=== PATIENT | male | born 1940 | race Caucasian/White ===

== ENCOUNTER 2023-05-30 12:52 | Outpatient (CLI) | payer MEDICARE, BC, SELFPAY | END 2023-05-30 12:53 | disposition home or self-care (01) | PROVIDERS: PCP Nurse Practitioner Gerontology; Visit Provider Nurse Practitioner Family | DX: E11.621 Type 2 diabetes mellitus with foot ulcer (principal); L97.514 Non-pressure chronic ulcer of other part of right foot with necrosis of bone; Z79.4 Long term (current) use of insulin; Z79.84 Long term (current) use of oral hypoglycemic drugs | CPT/HCPCS: 11044; 73630; 87070; 87186; 88304; 88311; G0463 ==

== ENCOUNTER 2023-06-05 08:52 | Outpatient (CLI) | payer MEDICARE, SELFPAY | END 2023-06-05 08:53 | disposition home or self-care (01) | PROVIDERS: PCP Nurse Practitioner Gerontology; Visit Provider Nurse Practitioner Family | DX: E11.621 Type 2 diabetes mellitus with foot ulcer (principal); L97.514 Non-pressure chronic ulcer of other part of right foot with necrosis of bone; M86.171 Other acute osteomyelitis, right ankle and foot; Z79.4 Long term (current) use of insulin; Z79.84 Long term (current) use of oral hypoglycemic drugs | CPT/HCPCS: 11043; G0463 ==

== ENCOUNTER 2023-08-01 09:20 | Outpatient (REF) | payer MEDICARE, SELFPAY ==
[2023-08-01 10:39] LABS: Chloride* 95 mmol/L (96-114)
[2023-08-01 10:40] LABS: Potassium* 4.3 mmol/L (3.6-5.1); Sodium* 132 mmol/L (135-149)
[2023-08-01 10:42] LABS: Creatinine* 0.6 mg/dL (0.5-1.5); Estimated Glomerular Filt Rate 95 ml/min
[2023-08-01 10:43] LABS: Anion Gap 9 mEq/L (7-15); Blood Urea Nitrogen* 19 mg/dL (7-30); Calcium* 9.5 mg/dL (8.4-10.6); Carbon Dioxide* 28 mmol/L (20-32); Glucose* 90 mg/dL (60-115)
[2023-08-01 12:04] LABS: Hemoglobin A1C* 7.9 % (0-5.6)
== END 2023-08-01 09:21 | disposition home or self-care (01) ==
LOC: NPINS 09:20
PROVIDERS: PCP Nurse Practitioner Gerontology; Visit Provider Nurse Practitioner Gerontology
DX: E11.9 Type 2 diabetes mellitus without complications (principal)
CPT/HCPCS: 80048; 83036

== ENCOUNTER 2023-12-05 11:16 | Outpatient (REF) | payer MEDICARE, SELFPAY ==
[2023-12-05 12:47] LABS: Basophils Absolute Auto 0.02 K/uL (0.00-0.30); Basophils Percent Auto 0.4 % (0.0-3.0); Eosinophils Absolute Auto 0.15 K/uL (0.00-0.50); Hematocrit 35.5 % (37.0-53.0); Hemoglobin* 12.2 gm/dL (13.5-17.5); Immature Granulocytes Abs Auto 0.02 K/uL (0.00-0.30); Immature Granulocytes Pct Auto 0.4 %; Lymphocytes Absolute Auto 1.28 K/uL (0.90-2.90); Mean Corpuscular HGB Conc 34 gm/dL (32-36); Mean Corpuscular Hemoglobin 34 pg (26-34); Mean Corpuscular Volume 98 fL (80-100); Monocytes Percent Auto 11.8 % (0.0-11.0); Neutrophils Absolute Auto 2.88 K/uL (1.7-7.0); Neutrophils Percent Auto 58.4 % (42.0-72.0); Platelet Count* 257 K/uL (140-440); RDW Coefficient of Variation % 13.1 % (11.5-15.5); Red Blood Count 3.64 m/uL (4.30-5.90); White Blood Count* 4.93 K/uL (4.50-11.00)
[2023-12-05 12:53] LABS: Slide Review Reflex No
[2023-12-05 13:16] LABS: Hemoglobin A1C* 7.6 % (0-5.6)
== END 2023-12-05 11:17 | disposition home or self-care (01) ==
LOC: NPINS 11:16
PROVIDERS: PCP Nurse Practitioner Gerontology; Visit Provider Family Medicine
DX: E11.42 Type 2 diabetes mellitus with diabetic polyneuropathy (principal); I67.9 Cerebrovascular disease, unspecified
CPT/HCPCS: 83036; 85025

== ENCOUNTER 2023-12-22 13:14 | Emergency (ER) | payer MEDICARE, BC, SELFPAY ==
--- NOTE | 2023-12-22 13:24 | CRLHL7_ITS ---
For Patients: As a result of the Century Cures Act, medical imaging exams and procedure reports are released immediately into your electronic medical record. You may view this report before your referring provider. If you have questions, please contact your health care provider. INDICATION: Fall, head injury, on Plavix TECHNIQUE: Noncontrast axial CT of the head. Coronal and sagittal reformats. Bone and soft tissue algorithms. COMPARISON: None FINDINGS: Soft tissue edema/hematoma at the right frontal scalp and periorbital face. The calvarium appears grossly intact. No acute intracranial hemorrhage or abnormal extra-axial fluid collection. 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 Preserved meza-white matter differentiation. Scattered hypoattenuation throughout the supratentorial white matter, with mild central predominant cerebral volume loss. Calcific intracranial atherosclerotic plaquing. Clear visualized paranasal sinuses and mastoid air cells. Bilateral lens implants. IMPRESSION: 1. Soft tissue edema/hematoma at the right frontal scalp and periorbital face. 2. No skull fracture or acute intracranial hemorrhage identified. 3. Mild generalized cerebral volume loss, mild chronic microangiopathy changes, and old left occipital lobe infarct. Please note that all CT scans at this facility use dose modulation, iterative reconstruction, and/or weight-based dosing when appropriate to reduce radiation dose to as low as reasonably achievable. Dictated by Sue Kyle MD @ 12/22/2023 2:25:33 PM (Electronically Signed)
[2023-12-22 13:25] VITALS: BP 142/72; PULSE 80; RESP 16; TEMP 36.8; O2SAT 96; BMI 24.7
--- NOTE | 2023-12-22 13:32 | ED.WOUNDLAC ---
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 Inocente states he simply was walking through the bedroom and caught his big toe on the interface between the carpet and linoleum. He tried to compensate but fell striking his face on the carpet causing a large black eye laceration to his right elbow. He was not knocked out, experienced any nausea or vomiting. He denies any prodromal symptoms. To include nausea lightheadedness dizziness chest pain or shortness of breath. Since that time he continues to denied chest pain or shortness of breath. He is currently on Plavix as an anti-platelet agent. He denies any neck pain, abdominal pain, back pain. His daughter and his were present and her very loving and supportive. Inocente typically walks with a cane but they did use his wheelchair this evening in order to transfer him over from [facility]. Related Data Home Medications ?Medication ?Instructions ?Recorded ?Confirmed amlodipine 10 mg tablet 10 mg PO DAILY 12/22/23 12/22/23 clopidogrel 75 mg tablet 75 mg PO DAILY 12/22/23 12/22/23 insulin glargine 100 unit/mL (3 38 unit subcut QPM 12/22/23 12/22/23 mL) subcutaneous pen (Lantus Solostar U-100 Insulin) losartan 100 mg tablet 100 mg PO DAILY 12/22/23 12/22/23 losartan 50 mg tablet 50 mg PO DAILY 12/22/23 12/22/23 meclizine 12.5 mg tablet 6.25 mg PO 3XD PRN 12/22/23 12/22/23 metformin 500 mg tablet,extended 1,000 mg PO QAM 12/22/23 12/22/23 release 24 hr Allergies Allergy/AdvReac Type Severity Reaction Status Date / Time mold Allergy Intermediate Hives Verified 12/22/23 13:33 Sulfa (Sulfonamide Allergy Intermediate Rash Verified 12/22/23 13:33 Antibiotics) [id number] Reductase AdvReac Intermediate myalgias Verified 12/22/23 13:33 Inhibitor [Jqfaogd-XQP-CkV Reductase Inhibitors] Review of Systems Status of ROS: Reports: 10 or more systems reviewed and unremarkable except as noted in History and below [facility] Social History Smoking Status: Never smoker Do you use any of these nicotine containing products: None How often do you have a drink containing alcohol: never How often do you have six or more drinks on one occasion: Never AUDIT-C Alcohol total score: 0 Non-prescribed substance use: denies use Exam Narrative: Exam Narrative: Inocente is alert and oriented. Very pleasant gentleman in no acute distress. He has a large amount of ecchymosis and edema around the right eye with a 3 cm laceration through the bulk of the right eyebrow. This compromises epidermis dermis partially compromises subcutaneous tissue. His EOM continues to be full. No obvious step-offs. He is able to smile without difficulty. Neck is supple. No midline tenderness. Range of motion full. Heart with regular rate and rhythm and lungs are clear bilaterally. Abdomen soft nontender. No will pain with palpation on the back. Lower extremities show a superficial abrasion on the left knee but he is able to move his extremities without difficulty. Palpation along clavicles bilaterally without pain. Upper humerus without pain. Skin tear noted on the right lateral elbow. It is slowly oozing. Nursing staff have placed Tegaderm but this is only allowing blood to accumulate. Have changed this to a compression bandage. On patient's right hand he has a v-shaped flap laceration. Lateral to that is a superficial laceration compromising epidermis. Const: Vital Signs, click to edit/add: Vital Signs - 24 hr 12/22/23 13:25 12/22/23 16:05 Temperature 98.2 F Pulse Rate [Pulse Oximeter] 80 75 Respiratory Rate 16 18 Blood Pressure [Ri ght Upper Arm] 142/72 H 134/76 Pulse Oximetry 96 95 Oxygen Delivery Me thod Room Air Room Air Documenting provider has reviewed patient's vital signs: yes Course Course ED Course: At this time differential diagnosis includes but is not limited to cervical fracture, closed head injury, concussion, skull fracture, facial fracture. Head CT has been ordered by nursing staff. I have asked the dad cervical spine. Will place let on the eyebrow laceration for future repair. Unfortunately I do think that the large v-shaped flap on the head dorsum of the hand will heal better with sutures. This area is cleansed. 1% lidocaine with epinephrine is injected into the periphery of the wound with good anesthesia achieved. Reevaluation(s) Reevaluation #1: Head CT and cervical spine negative. Unfortunately did not catch the bulk of the orbits. I did check with Radiology to see if we needed at a facial CT and indeed we do. Reevaluation #2: Laceration repair: Dorsum of right hand shows a v-shaped flap laceration measuring approximately 10 cm. Flap had been rolled up this was removed and gently placed back into position. This area had been cleansed. No foreign bodies were noted. Wound with persistent oozing. Nine sutures of 5 0 Ethilon were placed in interrupted fashion with good wound approximation. Skin at the tip of the flap is extremely thin and I have doubts that this will be viable. This was laid down with good wound approximation. Reevaluation #3: Laceration repair 2.: Right eyebrow Patient noted to have a 3 cm laceration through his right eyebrow. This compromises epidermis and dermis and partially compromises subcutaneous tissue. No foreign bodies are noted. Seven sutures of 6 0 Ethilon are placed in an interrupted fashion with good wound closure. I did leave the ends of the sutures quite long so that they would be easy to remove. Vital Signs Vital signs: Initial Vital Signs Temperature 98.2 F 12/22/23 13:25 Temperature Source Temporal Artery Scan 12/22/23 13:25 Pulse Rate 80 12/22/23 13:25 Respiratory Rate 16 12/22/23 13:25 Blood Pressure 142/72 H 12/22/23 13:25 Blood Pressure Mean 95 12/22/23 13:25 Blood Pressure Position Semi-Fowlers 12/22/23 13:25 Pulse Oximetry 96 12/22/23 13:25 Oxygen Delivery Method Room Air 12/22/23 13:25 Vital Signs Temperature 98.2 F 12/22/23 13:25 Pulse Rate 80 12/22/23 13:25 Respiratory Rate 16 12/22/23 13:25 Blood Pressure 142/72 H 12/22/23 13:25 Pulse Oximetry 96 12/22/23 13:25 Oxygen Delivery Method Room Air 12/22/23 13:25 Temperature 98.2 F 12/22/23 13:25 Pulse Rate 75 12/22/23 16:05 Respiratory Rate 18 12/22/23 16:05 Blood Pressure 134/76 12/22/23 16:05 Pulse Oximetry 95 12/22/23 16:05 Oxygen Delivery Method Room Air 12/22/23 16:05 Medications Administered Medications: Discontinued Medications Generic Name Dose Route Start Last Admin Trade Name Freq PRN Reason Stop Dose Admin Tetanus/Diphtheria Toxoids 0.5 ml 12/22/23 14:13 12/22/23 14:27 Tetanus-Diphtheria Tox Vaccine IM 12/22/23 14:14 0.5 ml .ONCE ONE Administration Lidocaine/Epinephrine/Tetracaine 3 ml 12/22/23 14:05 12/22/23 14:15 Lidocaine/Epinep/Tetracaine 3 Ml Gel..Ml. TOPICAL 12/22/23 14:06 3 ml ONCE ONE Administration MDM - Wound/Laceration MDM Narrative Medical decision making narrative: 1. Fall-no prodromal symptoms. This was simply a trip. 2. Right orbital trauma with laceration-sutures were placed. Fortunately no evidence of orbital fracture on CT. Head and cervical spine CT is also negative. Sutures will be removed in 5 days time. Monitor for infection. 3. Thyroid nodule - measuring 1.6 cm and will need to have follow-up. 4. Skin tear right elbow-pressure dressing applied with approximation of the skin. 5. Right hand lacerations-1 flap needed to be stone and patient tolerated procedure well. The wound came together quite well. Sutures will be removed in 10 days time. Monitor for infection. 6. Disposition-home at this time. Return for worsening symptoms, confusion, vomiting and as needed. Medical Records Attestation: I reviewed the patient's medical records. Imaging Data CT scan - head: Attestation: I have reviewed the pertinent imaging results. Radiologist's impression: Soft tissue edema/hematoma at the right frontal scalp and periorbital face. The calvarium appears grossly intact. No acute intracranial hemorrhage or abnormal extra-axial fluid collection. 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 Preserved meza-white matter differentiation. Scattered hypoattenuation throughout the supratentorial white matter, with mild central predominant cerebral volume loss. Calcific intracranial atherosclerotic plaquing. Clear visualized paranasal sinuses and mastoid air cells. Bilateral lens implants. IMPRESSION: 1. Soft tissue edema/hematoma at the right frontal scalp and periorbital face. 2. No skull fracture or acute intracranial hemorrhage identified. 3. Mild generalized cerebral volume loss, mild chronic microangiopathy changes, and old left occipital lobe infarct. Cervical spine CT: Attestation: I have reviewed the pertinent imaging results. Radiologist's impression: he normal cervical lordosis is preserved. Grade 1 anterolisthesis at C3-4 and C7-T1. Craniocervical junction appears within normal limits. Mild chronic anterior wedge configuration of C3, C4, and T1. No acute fracture identified. Bony ankylosis across the bilateral uncovertebral and facet joints at C3-4. Scattered posterior disc-osteophyte complexes, uncovertebral and facet arthropathy. Moderately severe spinal canal stenosis at C5-6, with mild spinal canal narrowing elsewhere. Multilevel neural foraminal stenosis, greatest bilaterally at C4-5 and C5-6, followed by C6-7 and C3-4. Calcific plaquing at the carotid bifurcations. Approximately 1.6 cm hypodense left thyroid nodule, incompletely visualized included lung apices are clear, without evidence of pneumothorax. Impression: 1. No evidence of acute fracture or traumatic malalignment in the cervical spine. 2. Cervical spondylosis, with moderately severe spinal canal stenosis and multilevel high-grade neural foraminal stenosis as detailed. 3. Approximately 1.6 cm left thyroid nodule. Consider thyroid ultrasound for further characterization if clinically appropriate. Facial CT: Attestation: I have reviewed the pertinent imaging results. Radiologist's impression: No acute fracture of the maxillofacial bones. A large right preseptal/periorbital hematoma. The orbital contents are normal in appearance. There is no evidence for penetrating injury to the ocular globes. The lenses are situated in their normally expected anterior locations. No radiodense or metallic foreign body is demonstrated. Calcified secretions left maxillary alveolar recess. Paranasal sinuses and mastoid air cells are otherwise clear. The nasal septum is relatively midline. Advanced upper cervical spondylosis. Thick vascular calcifications carotid bulbs. The visualized portions of the brain are normal in appearance. IMPRESSION: 1. No acute fracture of the maxillofacial bones. Discharge Plan Discharge Clinical Impression: Laceration, Fall, Skin tear Patient Disposition: Home, Self-Care Condition: Improved Additional Instructions: 1. Eyebrow laceration-7 sutures were placed. These will need to be removed in 5-7 days time. Monitor for infection and seek medical attention for fever, purulent drainage and as needed . A thin layer of bacitracin applied twice daily is acceptable. Leave open to air as long as you are not in an environment which is contaminated or dirty. 2. Right hand laceration-9 sutures were placed. Suture removal in 10 days time. You have another super fascial laceration near this. I would recommend keeping bacitracin on this area twice daily. Again, cover if needed. 3. Right elbow abrasion-change dressing on Monday morning. Monitor for infection 4. Return to the emergency room as needed. Note that on your cervical spine CT there is a thyroid nodule. It is measuring 1.6 cm. Nodules are very common but we should follow up on it. Please have your regular physician order an ultrasound of the thyroid. Prescriptions: No Action losartan 50 mg tablet 50 mg PO DAILY meclizine 12.5 mg tablet 6.25 mg PO 3XD PRN clopidogrel 75 mg tablet 75 mg PO DAILY amlodipine 10 mg tablet 10 mg PO DAILY losartan 100 mg tablet 100 mg PO DAILY metformin 500 mg tablet extended release 24 hr 1,000 mg PO QAM insulin glargine [Lantus Solostar U-100 Insulin] 100 unit/mL (3 mL) insulin pen 38 unit subcut QPM Follow Up/Referrals: Aure Marquez DNP, RN [Primary Care Provider] - Stand Alone Forms: [employer] Info Instructions
--- NOTE | 2023-12-22 13:38 | CRLHL7_ITS ---
For Patients: As a result of the Century Cures Act, medical imaging exams and procedure reports are released immediately into your electronic medical record. You may view this report before your referring provider. If you have questions, please contact your health care provider. Indication: Fall, head injury, on Plavix Technique: Noncontrast axial CT of the cervical spine with coronal and sagittal reformats. Comparison: Same-day CT head Findings: The normal cervical lordosis is preserved. Grade 1 anterolisthesis at C3-4 and C7-T1. Craniocervical junction appears within normal limits. Mild chronic anterior wedge configuration of C3, C4, and T1. No acute fracture identified. Bony ankylosis across the bilateral uncovertebral and facet joints at C3-4. Scattered posterior disc-osteophyte complexes, uncovertebral and facet arthropathy. Moderately severe spinal canal stenosis at C5-6, with mild spinal canal narrowing elsewhere. Multilevel neural foraminal stenosis, greatest bilaterally at C4-5 and C5-6, followed by C6-7 and C3-4. Calcific plaquing at the carotid bifurcations. Approximately 1.6 cm hypodense left thyroid nodule, incompletely visualized included lung apices are clear, without evidence of pneumothorax. Impression: 1. No evidence of acute fracture or traumatic malalignment in the cervical spine. 2. Cervical spondylosis, with moderately severe spinal canal stenosis and multilevel high-grade neural foraminal stenosis as detailed. 3. Approximately 1.6 cm left thyroid nodule. Consider thyroid ultrasound for further characterization if clinically appropriate. Please note that all CT scans at this facility use dose modulation, iterative reconstruction, and/or weight-based dosing when appropriate to reduce radiation dose to as low as reasonably achievable. Dictated by Sue Kyle MD @ 12/22/2023 2:31:55 PM (Electronically Signed)
[2023-12-22] MEDS: LIDOCAINE/EPINEP/TETRACAINE 3 ML GEL..ML. TOPICAL (14:15)
--- NOTE | 2023-12-22 15:06 | CRLHL7_ITS ---
For Patients: As a result of the Century Cures Act, medical imaging exams and procedure reports are released immediately into your electronic medical record. You may view this report before your referring provider. If you have questions, please contact your health care provider. INDICATION: Right periorbital trauma. TECHNIQUE: CT of the face without contrast. Coronal reconstructions are included. COMPARISON: Head CT from 12/22/2023. FINDINGS: No acute fracture of the maxillofacial bones. A large right preseptal/periorbital hematoma. The orbital contents are normal in appearance. There is no evidence for penetrating injury to the ocular globes. The lenses are situated in their normally expected anterior locations. No radiodense or metallic foreign body is demonstrated. Calcified secretions left maxillary alveolar recess. Paranasal sinuses and mastoid air cells are otherwise clear. The nasal septum is relatively midline. Advanced upper cervical spondylosis. Thick vascular calcifications carotid bulbs. The visualized portions of the brain are normal in appearance. IMPRESSION: 1. No acute fracture of the maxillofacial bones. Please note that all CT scans at this facility use dose modulation, iterative reconstruction, and/or weight-based dosing when appropriate to reduce radiation dose to as low as reasonably achievable. Dictated by Lamine Go MD @ 12/22/2023 4:27:02 PM (Electronically Signed)
[2023-12-22 16:05] VITALS: BP 134/76; PULSE 75; RESP 18; O2SAT 95
--- NOTE | 2023-12-22 17:02 | ED.NURSE ---
Bacitracin applied to right eyebrow. Right elbow wrapped with Coban, Telfa applied. Right hand bacitracin applied, Telfa placed on top, and wrapped lightly with Coban. Pt tolerated well.
== END 2023-12-22 17:20 | disposition home or self-care (01) ==
PROVIDERS: Emergency Provider Family Medicine; PCP Nurse Practitioner Gerontology
DX: S61.411A Laceration without foreign body of right hand, initial encounter (principal); S01.111A Laceration without foreign body of right eyelid and periocular area, initial encounter; S50.311A Abrasion of right elbow, initial encounter; W01.0XXA Fall on same level from slipping, tripping and stumbling without subsequent striking against object, initial encounter; Y93.01 Activity, walking, marching and hiking; Y92.003 Bedroom of unspecified non-institutional (private) residence as the place of occurrence of the external cause; Z23 Encounter for immunization
CPT/HCPCS: 12011; 12001; 70450; 70486; 72125; 90471; 90714; 99284; 99285

== ENCOUNTER 2024-01-10 10:42 | Outpatient (CLI) | payer MEDICARE, BC, SELFPAY ==
--- NOTE | 2024-01-10 11:15 | CRLHL7_ITS ---
For Patients: As a result of the Century Cures Act, medical imaging exams and procedure reports are released immediately into your electronic medical record. You may view this report before your referring provider. If you have questions, please contact your health care provider. INDICATION: Thyroid nodule COMPARISON: CT 12/22/2023 TECHNIQUE: Booker scale and color Doppler images were acquired of the thyroid gland. FINDINGS: Mostly solid nodule left thyroid lobe inferior pole measures 1.7 x 1.1 x 1.3 cm, TR 4. Isthmus measures 3.8 millimeters. The right lobe measures 5.7 x 1.7 x 2.1 cm and the left lobe measures 5.5 x 1.8 x 2.4 cm in size. The color Doppler images demonstrate normal vascularity. There is no evidence of cervical lymphadenopathy or parathyroid mass. IMPRESSION: 1.7 cm TR 4 nodule left thyroid lobe. FNA recommended. Dictated by Laith Brown MD @ 01/12/2024 6:28:10 AM (Electronically Signed)
== END 2024-01-10 10:43 | disposition home or self-care (01) ==
LOC: US 10:43
PROVIDERS: PCP Nurse Practitioner Gerontology; Visit Provider Nurse Practitioner Gerontology
DX: E04.1 Nontoxic single thyroid nodule (principal)
CPT/HCPCS: 76536

== ENCOUNTER 2024-01-12 08:49 | Outpatient (CLI) | payer MEDICARE, BC, SELFPAY | END 2024-01-12 08:50 | disposition home or self-care (01) | LOC: RAD 08:50 | PROVIDERS: PCP Nurse Practitioner Gerontology; Visit Provider Family Medicine | DX: R01.1 Cardiac murmur, unspecified (principal); I35.1 Nonrheumatic aortic (valve) insufficiency; I34.0 Nonrheumatic mitral (valve) insufficiency | CPT/HCPCS: 93306 ==

== ENCOUNTER 2024-02-05 08:58 | Outpatient (CLI) | payer MEDICARE, BC, SELFPAY ==
--- NOTE | 2024-02-05 09:15 | CRLHL7_ITS ---
For Patients: As a result of the Century Cures Act, medical imaging exams and procedure reports are released immediately into your electronic medical record. You may view this report before your referring provider. If you have questions, please contact your health care provider. INDICATION : Left thyroid nodule. TECHNIQUE : Ultrasound-guided fine needle aspiration of thyroid nodule. Comparison : 01/10/2024 FINDINGS : PROCEDURE: After the informed consent and time-out, multiple fine needle aspirations were obtained from the thyroid nodule. Fine needle performed. 25 gauge needles were used. Lidocaine was used for local anesthesia. The preliminary cytology was adequate for interpretation. Real-time imaging was used for guidance and needle placement. Post imaging ultrasound demonstrates no immediate complication. IMPRESSION : Successful fine needle aspiration of left thyroid nodule. Dictated by Laith Brown MD @ 02/05/2024 10:21:06 AM (Electronically Signed)
== END 2024-02-05 08:59 | disposition home or self-care (01) ==
LOC: US 08:59
PROVIDERS: PCP Nurse Practitioner Gerontology; Visit Provider Nurse Practitioner Gerontology
DX: E04.1 Nontoxic single thyroid nodule (principal)
CPT/HCPCS: 10005; 88173

== ENCOUNTER 2024-04-16 16:15 | Outpatient (REF) | payer MEDICARE, BC, SELFPAY ==
[2024-04-16 16:58] LABS: Chloride* 95 mmol/L (96-114); Potassium* 4.5 mmol/L (3.6-5.1); Sodium* 128 mmol/L (135-149)
[2024-04-16 17:01] LABS: Anion Gap 9 mEq/L (7-15); Blood Urea Nitrogen* 14 mg/dL (7-30); Calcium* 9.2 mg/dL (8.4-10.6); Carbon Dioxide* 24 mmol/L (20-32); Creatinine* 0.6 mg/dL (0.5-1.5); Estimated Glomerular Filt Rate 95 ml/min; Glucose* 190 mg/dL (60-115)
[2024-04-16 17:08] LABS: Hemoglobin A1C* 8.2 % (0-5.6)
== END 2024-04-16 16:16 | disposition home or self-care (01) ==
LOC: NPINS 16:15
PROVIDERS: PCP Nurse Practitioner Gerontology; Visit Provider Nurse Practitioner Gerontology
DX: E11.9 Type 2 diabetes mellitus without complications (principal)
CPT/HCPCS: 80048; 83036

== ENCOUNTER 2024-06-04 08:55 | Outpatient (REF) | payer MEDICARE, BC, SELFPAY ==
[2024-06-04 10:07] LABS: PSA Screen* 1.87 ng/mL (0.10-4.00)
== END 2024-06-04 08:56 | disposition home or self-care (01) ==
LOC: NPINS 08:55
PROVIDERS: PCP Nurse Practitioner Gerontology; Visit Provider Nurse Practitioner Gerontology
DX: Z12.5 Encounter for screening for malignant neoplasm of prostate (principal)
CPT/HCPCS: 84153; G0103

== ENCOUNTER 2024-07-10 09:16 | Outpatient (REF) | payer MEDICARE, BC, SELFPAY ==
[2024-07-10 09:49] LABS: Hemoglobin A1C* 8.3 % (0-5.6)
[2024-07-10 09:51] LABS: Chloride* 93 mmol/L (96-114)
[2024-07-10 09:52] LABS: Potassium* 4.4 mmol/L (3.6-5.1); Sodium* 132 mmol/L (135-149)
[2024-07-10 09:54] LABS: Creatinine* 0.7 mg/dL (0.5-1.5); Estimated Glomerular Filt Rate 90 ml/min
[2024-07-10 09:55] LABS: Anion Gap 10 mEq/L (7-15); Blood Urea Nitrogen* 17 mg/dL (7-30); Calcium* 9.1 mg/dL (8.4-10.6); Carbon Dioxide* 29 mmol/L (20-32); Glucose* 312 mg/dL (60-115)
== END 2024-07-10 09:17 | disposition home or self-care (01) ==
LOC: LAB 09:16
PROVIDERS: PCP Nurse Practitioner Gerontology; Visit Provider Nurse Practitioner Gerontology
DX: E11.9 Type 2 diabetes mellitus without complications (principal)
CPT/HCPCS: 36415; 80048; 83036

== ENCOUNTER 2024-07-16 09:00 | Outpatient (REF) | payer MEDICARE, BC, SELFPAY ==
[2024-07-16 09:23] LABS: Chloride* 95 mmol/L (96-114); Sodium* 132 mmol/L (135-149)
[2024-07-16 09:24] LABS: Potassium* 4.6 mmol/L (3.6-5.1)
[2024-07-16 09:26] LABS: Blood Urea Nitrogen* 17 mg/dL (7-30); Creatinine* 0.8 mg/dL (0.5-1.5); Estimated Glomerular Filt Rate 87 ml/min
[2024-07-16 09:27] LABS: Anion Gap 9 mEq/L (7-15); Calcium* 9.3 mg/dL (8.4-10.6); Carbon Dioxide* 28 mmol/L (20-32); Glucose* 196 mg/dL (60-115)
[2024-07-16 09:34] LABS: Hemoglobin A1C* 8.3 % (0-5.6)
== END 2024-07-16 09:01 | disposition home or self-care (01) ==
LOC: NPINS 09:00
PROVIDERS: PCP Nurse Practitioner Gerontology; Visit Provider Nurse Practitioner Gerontology
DX: E11.9 Type 2 diabetes mellitus without complications (principal)
CPT/HCPCS: 80048; 83036

== ENCOUNTER 2024-09-25 09:30 | Outpatient (REF) | payer MEDICARE, BC, SELFPAY ==
[2024-09-25 10:15] LABS: Hemoglobin* 13.2 gm/dL (13.5-17.5)
[2024-09-25 10:16] LABS: Chloride* 96 mmol/L (96-114); Potassium* 4.5 mmol/L (3.6-5.1); Sodium* 132 mmol/L (135-149)
[2024-09-25 10:19] LABS: Anion Gap 7 mEq/L (7-15); Blood Urea Nitrogen* 15 mg/dL (7-30); Carbon Dioxide* 29 mmol/L (20-32); Creatinine* 0.7 mg/dL (0.5-1.5); Estimated Glomerular Filt Rate 90 ml/min
[2024-09-25 10:20] LABS: Calcium* 9.4 mg/dL (8.4-10.6); Glucose* 218 mg/dL (60-115)
[2024-09-25 10:27] LABS: Hemoglobin A1C* 8.4 % (0-5.6)
== END 2024-09-25 09:31 | disposition home or self-care (01) ==
LOC: NPINS 09:30
PROVIDERS: PCP Nurse Practitioner Gerontology; Visit Provider Family Medicine
DX: E11.9 Type 2 diabetes mellitus without complications (principal); R60.9 Edema, unspecified
CPT/HCPCS: 80048; 83036; 85018

== ENCOUNTER 2025-02-11 13:11 | Outpatient (REF) | payer MEDICARE, BC, SELFPAY ==
--- OUTSIDE RECORDS SUMMARY | 2021-03-15 16:54 | XMS_ITS | Continuity of Care Document ---
Author Organization [facility] Address [address] [address] Phone Care Team Providers Care Flame Hardening Machine Setter Name Role Phone Naveen Zimmerman MD Unavailable Unavailable Allergies, Adverse Reactions, Alerts Substance Reaction Status Criticality Sulfa (Sulfonamide Antibiotics) Active No Information mold Active No Information Medications Medication Instructions Dosage Effective Dates (start - stop) Status Comments dicloxacillin 500 mg capsule take 1 capsule by oral route every 6 hours 1 hour before a meal or 2 hours after a meal 500 MG - Active Basaglar KwikPen U-100 Insulin 100 unit/mL (3 mL) subcutaneous inject by subcutaneous route as per insulin protocol 0.00 - Active glucosamine HCl 500 mg tablet - Active diclofenac 1 % topical gel apply 2 gram by topical route 4 times every day to the affected area(s) 2.00 gram - Active Vitamin B-12 1,000 mcg tablet take 1 tablet by oral route every day 1 tablet - Active tolterodine 1 mg tablet take 1 tablet by oral route 2 times every day 1 MG - Active Co Q-10 200 mg capsule - Active clopidogrel 75 mg tablet take 1 tablet by oral route every day 75 MG - Active amlodipine 10 mg tablet take 1 tablet by oral route every day 10 MG - Active chromium picolinate 400 mcg tablet - Active doxycycline hyclate 150 mg tablet take 1 tablet by oral route 2 times every day 150 MG - Active Advance Directives Directive Yes / No Effective Date File Name No Information Encounters Encounter Description Practice Location Reason(s) For Visit Diagnoses Date Provider Providers Copied on Encounter [facility], [address] [place], [place], [id number], [place] tel:[phone] [facility] No Information 1 Erasmo Hodge. [address], [place], [place], [id number] , [place]. tel: [phone] [facility], [address] , [place], [place], [id number], [place] tel:[phone] [facility] No Information 0 Erasmo Hodge. [address], [place], [place], [id number] , [place]. tel: [phone] Family History Family Member Type Diagnosis Age At Onset Problem Family history of heart dise ase Problem Family history of Diabetes m ellitus Problem Family history of Bladder ne oplasm Payers Payer name Insurance type Covered democrat ID Authoriza tion(s) No Information Social History Type Description Quantity Date Captured Comments Sex Male Smoking Status No Information Chief Complaint And Reason For Visit No Information Reason For Referral Reason For Referral No Information History Of Present Illness Encounter Date Complaint History Of Prese nt Illness No Information Functional Status Date Functional Assessmen t No Information Instructions Date Instruction Additional Infor mation No Information Assessments Type Assessment Date No Information Patient Care Teams Name Effective Dates (start - stop) Status Members No Information
[2025-02-11 14:00] LABS: Chloride* 95 mmol/L (96-114); Potassium* 4.5 mmol/L (3.6-5.1)
[2025-02-11 14:01] LABS: Sodium* 129 mmol/L (135-149)
[2025-02-11 14:03] LABS: Anion Gap 10 mEq/L (7-15); Blood Urea Nitrogen* 12 mg/dL (7-30); Calcium* 9.0 mg/dL (8.4-10.6); Carbon Dioxide* 24 mmol/L (20-32); Creatinine* 0.6 mg/dL (0.5-1.5); Estimated Glomerular Filt Rate 94 ml/min; Glucose* 219 mg/dL (60-115)
[2025-02-11 14:13] LABS: Hematocrit* 37.0 % (37.0-53.0); Hemoglobin* 12.9 gm/dL (13.5-17.5); Immature Granulocytes Abs Auto 0.02 K/uL (0.00-0.30); Immature Granulocytes Pct Auto 0.4 %; Lymphocytes Absolute Auto 1.46 K/uL (0.90-2.90); Mean Corpuscular HGB Conc 35 gm/dL (32-36); Mean Corpuscular Hemoglobin 33 pg (26-34); Mean Corpuscular Volume 96 fL (80-100); RDW Coefficient of Variation % 13.2 % (11.5-15.5); Red Blood Count* 3.87 m/uL (4.30-5.90); White Blood Count* 5.10 K/uL (4.50-11.00)
[2025-02-11 14:31] LABS: Slide Review Reflex No; Vitamin D 25 Hydroxy* 40 ng/mL (30-80)
[2025-02-11 14:52] LABS: Vitamin B12* 430 pg/mL (243-894)
== END 2025-02-11 13:12 | disposition home or self-care (01) ==
LOC: NPINS 13:11
PROVIDERS: PCP Nurse Practitioner Gerontology; Visit Provider Family Medicine
DX: E11.9 Type 2 diabetes mellitus without complications (principal); R60.0 Localized edema; Z79.899 Other long term (current) drug therapy
CPT/HCPCS: 80048; 82306; 82607; 83036; 85025

== ENCOUNTER 2025-03-10 20:22 | Emergency (ER) | payer MEDICARE, BC, SELFPAY ==
--- OUTSIDE RECORDS SUMMARY | 2021-03-15 16:54 | XMS_ITS | Continuity of Care Document ---
Author Organization [facility] Address [address] [address] Phone Care Team Providers Care Test Rack Operator Name Role Phone Naveen Zimmerman MD Unavailable [...] on Encounter [facility], [address] [place], [place], [id number], [place] tel:[phone] [facility] No Information 1 Erasmo Hodge. [address], [place], [place], [id number] , [place]. tel: [phone] [facility], [address] , [place], [place], [id number], [place] tel:[phone] [facility] No Information 0 Erasmo Hodge. [address], [place], [place], [id number] , [place]. tel: [phone] Family History Family Member Type Diagnosis Age [...]
--- OUTSIDE RECORDS SUMMARY | 2021-03-15 16:54 | XMS_ITS | Continuity of Care Document ---
Author Organization [facility] Address [address], [place] [address] Phone Care Team Providers Care Tunneling Machine Operator Name Role Phone Naveen Zimmerman MD [...] Encounter [facility], [address] [place], [place], [id number], [place] tel:[phone] [facility] No Information 1 Ersamo Hodge. [address], [place], [place], [id number] , [place]. tel: [phone] [facility], [address] , [place], [place], [id number], [place] tel:[phone] [facility] No Information 0 Erasmo Hodge. [address], [place], [place], [id number] , [place]. tel: [phone] Family History Family Member Type Diagnosis Age At Onset Problem Family history of heart dise ase Problem Family history of Diabetes m ellitus Problem Family history of Bladder ne oplasm Payers Payer name Insurance type Covered libertarian ID Authoriza tion(s) No Information Social History [...]
--- OUTSIDE RECORDS SUMMARY | 2025-03-10 20:24 | XMS_ITS | Clinical Summary ---
Author Organization [facility] Address [address] [place] [id number] Care Team Providers Care Manufacturing Process Technician Name Role Phone No Machado MD Primary Care Provider + Allergies Active Allergy Reactions Criticality Noted Date Comments Latex Other - Describe In Comment Field 06/06/2023 States wounds don't heal with latex bandages Sulfa (Sulfonamide Antibiotics) Hives 06/06/2023 Medications aspirin 81 mg cap Take 2 Capsules by mouth once daily. 4 Active losartan (COZAAR) 100 mg tablet Take 100 mg by mouth once daily. Active amLODIPine (NORVASC) 10 mg tablet Take 10 mg by mouth once daily. Active metFORMIN (GLUCOPHAGE XR) 500 mg Extended-Releas e tablet Take 1,000 mg by mouth once daily with evening meal. Active clopidogreL (PLAVIX) 75 mg tablet Take 75 mg by mouth every morning. 3 Active Lantus Solostar U-100 Insulin 100 unit/mL (3 mL) pen Inject 38 units subcutaneous before bedtime. Active levoFLOXacin (LEVAQUIN) 500 mg tablet Take 500 mg by mouth once daily. 4 Active durable medical equipment (DME)Indication s:Osteomyelitis of second toe of right foot (HC) SQUARED TOE POST OP LEIFE, GILES, REF: [phone] 4 Active Social History Tobacco Use Types Packs/Day Years Used Date Smoking Tobacco: Former Cigarettes Pipe Smokeless Tobacco: Never Tobacco Cessation:Counseling Given: Yes Alcohol Use Standard Drinks/Week Comments Not Currently 0 (1 standard drink = 0.6 oz pur e alcohol) Sex and Gender Information Value Date Recorded Sex Assigned at Not on file Legal Sex Male 10:45 AM [employer] Gender Identity Not on file Sexual Orientation Not on file Obstetrics History Last Filed Vital Signs Vital Sign Reading Time Taken Comments Blood Pressure 142/73 10/31/2023 3:50 PM CDT Pulse 82 10/31/2023 3:50 PM CDT Temperature 36.8 C (98.2 F) 06/15/2023 10:23 AM [employer] Respiratory Rate 16 06/08/2023 12:10 PM [employer] Oxygen Saturation 96% 10/31/2023 3:50 PM CDT Inhaled Oxygen Concentration - - Weight 83 kg (182 lb 14.4 oz) 06/08/2023 11:00 A M [employer] Height 180.3 cm (5' 11) 06/08/2023 11:00 AM [employer] Body Mass Index 25.51 06/08/2023 11:00 AM [employer] WORK[employer] Plan of Treatment Health Maintenance Due Date Last Done Comments Tetanus booster 1949 Depression screening for age 12+ 1950 BMI (ht and wt on same day) for age 18+ 1956 Pneumococcal series for age 50+ (1 of 1 - PCV) 1988 Zoster (shingles) series for age 50+ (1 of 2) 1988 Medicare Wellness for age 65+ 08/10/2003 RSV vaccine for adults or (1 - 1-dose 75+ series) 2013 COVID-19 vaccine series ( - season) 2025 Influenza Vaccine (#1) 2025 Hepatitis B series for 19+ Aged Out N o longer eligible based on patient's age to complete this topic Insurance MEDICARE PART B HB ONLY [facility] MEDICARE PB ONLY MEDICARE PART A HB ONLY Advance Directives * Full Code (Latest Code Status on File) Date Activated Date Inactivated Comments 06/08/2023 10:56 AM 06/08/2023 3:27 PM Question Answer Comments Code Status Discussion: Unable to Assess Preferences, Provider to review later Care Teams Manufacturing Process Technician Relationship Specialty Start Date End Date No Machado MD [id number] [id number] PCP - General Family Practice 05/23/23
[2025-03-10 20:41] VITALS: BP 160/109; PULSE 92; RESP 16; TEMP 35.8; O2SAT 96; BMI 26.5
--- NOTE | 2025-03-10 20:44 | ED.ARRPALP ---
HPI - Arrhythmia/Palpitations General Time Seen by Provider: 20:24 Date Seen: 03/10/25 Chief Complaint: Arrhythmia/Palpitations Stated Complaint: Irregular heart beat Time Seen by Provider: 03/10/25 20:24 Source: patient, family (daughter is here with patient) and RN notes reviewed Mode of arrival: ambulatory Limitations: no limitations History of Present Illness HPI narrative: This 84-year-old male is brought over from [facility] where he resides by his daughter for an irregular pulse. He checks his vitals daily, follows his blood pressure and pulse, the monitor has been saying his pulse is irregular. Has been going on at least 2 weeks, maybe upwards of 4. He notes no shortness of breath, no chest pain. His EKG on arrival here is showing atrial fibrillation. This patient does take aspirin and Plavix. He was seen for a stroke in [place], had visual loss on the right side of the right eye and partial left visual loss as well, sounds as if it was from the posterior system. He is on an 81 mg aspirin as well as Plavix. I do not know all the details or when this actually happened. He is also insulin-dependent type 2 diabetic. He has hypertension. His blood pressure is recorded starting on February 28 show 116/72, pulse is 72. The 114/81 with a pulse of 68. The 115/90 pulse of 73. The 124/72, pulse of 72. The 122/91, pulse 68. The 126/77, pulse 83. The 131/74, pulse 74. The 115/79, pulse of 71. He is on losartan and amlodipine for his hypertension. We have recent chemistries and labs from this patient, reviewed. Most recent on February 11. complaint: irregular heart beat Related Data Home Medications ?Medication ?Instructions ?Recorded ?Confirmed amlodipine 10 mg tablet 10 mg PO DAILY 12/22/23 12/22/23 clopidogrel 75 mg tablet 75 mg PO DAILY 12/22/23 12/22/23 insulin glargine 100 unit/mL (3 38 unit subcut QPM 12/22/23 12/22/23 mL) subcutaneous pen (Lantus Solostar U-100 Insulin) losartan 100 mg tablet 100 mg PO DAILY 12/22/23 12/22/23 losartan 50 mg tablet 50 mg PO DAILY 12/22/23 12/22/23 meclizine 12.5 mg tablet 6.25 mg PO 3XD PRN 12/22/23 12/22/23 metformin 500 mg tablet,extended 1,000 mg PO QAM 12/22/23 12/22/23 release 24 hr Previous Rx's ?Medication ?Instructions ?Recorded apixaban 5 mg tablet (Eliquis) 5 mg PO BID #60 tabs 03/10/25 Allergies Allergy/AdvReac Type Severity Reaction Status Date / Time mold Allergy Intermediate Hives Verified 12/22/23 13:33 Sulfa (Sulfonamide Allergy Intermediate Rash Verified 12/22/23 13:33 Antibiotics) Mdzictm-LSR-[id number] Reductase AdvReac Intermediate myalgias Verified 12/22/23 13:33 Inhibitor (Vmbzosk-IWF-SkX Reductase Inhibitors) Review of Systems Status of ROS: Reports: 6 or more systems reviewed and unremarkable except as noted in History and below PFSH PFSH Medical History Atrial fibrillation ?I48.91 - Unspecified atrial fibrillation (ICD-10) Chronic anticoagulation ?Z79.01 - MCC (current) use of anticoagulants (ICD-10) CVA (cerebral vascular accident) ?I63.9 - Cerebral infarction, unspecified (ICD-10) Insulin dependent diabetes mellitus Health care directive on file ?Z78.9 - Other specified health status (ICD-10) Social History Smoking Status: Never smoker Do you use any of these nicotine containing products: None How often do you have a drink containing alcohol: never How often do you have six or more drinks on one occasion: Never AUDIT-C Alcohol total score: 0 Non-prescribed substance use: denies use Exam Const: Vital Signs, click to edit/add: Vital Signs - 24 hr 03/10/25 20:41 Temperature 96.5 F L Pulse Rate [Right Pulse Oximeter] 92 Respiratory Rate 16 Blood Pressure [Ri ght Upper Arm] 160/109 H Pulse Oximetry 96 Oxygen Delivery Me thod Room Air This 84-year-old male is alert, interactive, no apparent distress, seen exam room 3. He is lying in the bed, very pleasant. Speech is normal. Symmetrical facial function. Lungs are clear come good air entry, no wheezing or crackles, no tachypnea, no accessory muscle use. CV irregularly irregular, systolic murmur heard best right sternal border, normal S1-S2. Abdomen is soft, nontender, nondistended. He has absolutely no pretibial edema, there is no swelling of his legs, skin appears to be without any rash, warm and dry. Documenting provider has reviewed patient's vital signs: yes Course Course ED Course: Have reviewed with patient and his daughter that is EKG showing atrial fibrillation. He is currently rate controlled, will continue to monitor him on cardiac monitoring. His outside vitals show lower blood pressures and heart rate within control. Did discuss the stroke risk with this arrhythmia. 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 I do not know the details or what year this happened. I would not place him on both antiplatelets as well as an anticoagulant, this needs further investigation either with Cardiology or Neurology or potentially both. I will briefly run this by Cardiology alpesh, feel that this patient can follow-up outpatient. He had recent stable labs, he has no evidence of any fluid overload, no symptoms to suggest this. I think he can likely discharge to home and be managed outpatient. Reevaluation(s) Time of Reevaluation #1: 21:10 Reevaluation #1: Did review with patient and his daughter the recommendations per the artificial breast fabricator. Questions were answered. He does ambulate with a walker, does not go without it. We discussed the importance of continuing using his walker to prevent falls and complications blood thinners. He does definitely seem to understand. Consultations Consultation #1: Have spoken with artificial breast fabricator Dr. Williamson. She agrees with my plan for Zio patch. Should also recommend getting this patient has an updated echo. She would either stop the Plavix or the aspirin and start Eliquis. She stated 1 could consider conceivably stopping both Plavix and aspirin and putting him on Eliquis instead. I will talk to patient, did review with her that he is also diabetic. We ultimately decided on the Eliquis and 81 mg aspirin. He will need relatively recent cardiology follow-up but should not be scheduled and tell his Zio patch has been completed. It will not make any point to see Cardiology until both the Zio patch an echo reports are back. Time: 21:00 Vital Signs Vital signs: Initial Vital Signs Temperature 96.5 F L 03/10/25 20:41 Temperature Source Temporal Artery Scan 03/10/25 20:41 Pulse Rate 92 03/10/25 20:41 Pulse Rhythm Irregular 03/10/25 20:41 Respiratory Rate 16 03/10/25 20:41 Blood Pressure 160/109 H 03/10/25 20:41 Blood Pressure Mean 126 H 03/10/25 20:41 Blood Pressure Position Semi-Fowlers 03/10/25 20:41 Pulse Oximetry 96 03/10/25 20:41 Oxygen Delivery Method Room Air 03/10/25 20:41 Vital Signs Temperature 96.5 F L 03/10/25 20:41 Pulse Rate 92 03/10/25 20:41 Respiratory Rate 16 03/10/25 20:41 Blood Pressure 160/109 H 03/10/25 20:41 Pulse Oximetry 96 03/10/25 20:41 Oxygen Delivery Method Room Air 03/10/25 20:41 Temperature 96.5 F L 03/10/25 20:41 Pulse Rate 92 03/10/25 20:41 Respiratory Rate 16 03/10/25 20:41 Blood Pressure 160/109 H 03/10/25 20:41 Pulse Oximetry 96 03/10/25 20:41 Oxygen Delivery Method Room Air 03/10/25 20:41 MDM - Arrhythmia/Palpitations Medical Records Attestation: I reviewed the patient's medical records. Medical records narrative: Echo from 01/12/2024 showed normal left ventricular size, mildly increased wall thickness, normal global systolic function, calculated EF 62%. Right ventricular cavity size is normal, global systolic RV function is normal. Normal left atrium size. The aortic valve is calcified, mild stenosis and mild regurgitation. The aortic valve peak velocity is 2.5 m/sec, the peak gradient is 25 mmHg and the mean gradient is 12 mmHg. The aortic valve area is 1.71 cm squared with a dimension lists index of 0.47. The stroke volume index is 45 milliliters/meter squared. The mitral valve is sclerotic, [id number] mitral regurgitation. Tricuspid valve is normal. 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 No pericardial effusion. Cardiac rhythm was documented to be regular and with premature ventricular contractions during this study. ECG Data Attestation: I personally reviewed and interpreted this ECG as follows: (Atrial fibrillation, 92 beats per minute.) ECG interpretation date: 03/10/25 ECG interpretation time: 20:57 Discharge Plan Discharge Clinical Impression: Atrial fibrillation Qualifiers: Atrial fibrillation type: unspecified Qualified Code(s): I48.91 - Unspecified atrial fibrillation Patient Disposition: Home, Self-Care Condition: Stable Instructions: A-fib (Atrial Fibrillation) (ED), Blood Thinners (ED) Additional Instructions: We will start Eliquis 5 mg twice a day, did get a dose here tonight in the ER, need to try to get a dose as soon as you are able to in the morning, should attempt to take 12 hours apart. Stay on the 81 mg aspirin for now, can discuss further with your primary care provider and/or Cardiology if this should be something you stay on long-term. He definitely will need the Eliquis to prevent strokes from atrial fibrillation as long as you are deemed safe to stay on this medication. We will have you stop the Plavix (clopidogrel). You will need to complete the Zio patch, bring back per instructions. It is also recommended that you get scheduled for an echo due to the new atrial fibrillation, you have not had 1 since 2023. You will also need to see Cardiology in follow-up, this appointment [facility] through [facility]. The echo and Zio patch results should be back when you see Cardiology, appointment should probably be scheduled in 4-6 weeks depending on the time frame of the echo being done. If they are finding your heart rate is elevating over 100 consistently, could consider adding in metoprolol as a rate control agent. Please provide this discharge summary to your primary care provider, do need to see them within the next week if possible. Activity Level: Activity as Tolerated Prescriptions: New Eliquis 5 mg tablet 5 mg PO BID Qty: 60 0RF No Action losartan 50 mg tablet 50 mg PO DAILY meclizine 12.5 mg tablet 6.25 mg PO 3XD PRN clopidogrel 75 mg tablet 75 mg PO DAILY amlodipine 10 mg tablet 10 mg PO DAILY losartan 100 mg tablet 100 mg PO DAILY metformin 500 mg tablet extended release 24 hr 1,000 mg PO QAM insulin glargine [Lantus Solostar U-100 Insulin] 100 unit/mL (3 mL) insulin pen 38 unit subcut QPM Follow Up/Referrals: Aure Marquez DNP, RN [Primary Care Provider, Family Practice] Stand Alone Forms: [employer] Info Instructions
[2025-03-10 21:04] VITALS: RESP 21
[2025-03-10 21:15] VITALS: RESP 22
[2025-03-10 21:30] VITALS: RESP 20
[2025-03-10 21:35] VITALS: BP 118/88; PULSE 75; RESP 19; O2SAT 96
[2025-03-10] MEDS: APIXABAN 5 MG TABLET PO (21:56)
== END 2025-03-10 22:04 | disposition home or self-care (01) ==
PROVIDERS: Emergency Provider Family Medicine; PCP Nurse Practitioner Gerontology
DX: I48.91 Unspecified atrial fibrillation (principal)
CPT/HCPCS: 93005; 93246; 99284; A9270

== ENCOUNTER 2025-03-18 10:59 | Outpatient (REF) | payer MEDICARE, BC, SELFPAY ==
--- OUTSIDE RECORDS SUMMARY | 2021-03-15 16:54 | XMS_ITS | Continuity of Care Document ---
Author Organization [facility] Address [address] [place] [address] Phone Care Team Providers Care Drill Instructor Name Role Phone Erasmo GARZA, Naveen Unavailable [...] Encounter Disposition [facility], [address], [place], [id number], [place] tel:[phone] [facility] No Information 1 Erasmo Hodge. [address] , [place], [place], [id number] , [place]. tel:[phone] [facility], [address] , [place], [place], [id number], [place] tel:[phone] [facility] No Information 0 Erasmo Hodge. [address] , [place], [place], [id number] , [place]. tel:[phone] Family History Family Member Type Diagnosis Age [...]
[2025-03-18 11:30] LABS: Hematocrit* 36.1 % (37.0-53.0); Hemoglobin* 12.3 gm/dL (13.5-17.5); Immature Granulocytes Abs Auto 0.01 K/uL (0.00-0.30); Immature Granulocytes Pct Auto 0.2 %; Lymphocytes Absolute Auto 1.18 K/uL (0.90-2.90); Mean Corpuscular HGB Conc 34 gm/dL (32-36); Mean Corpuscular Hemoglobin 33 pg (26-34); Mean Corpuscular Volume 97 fL (80-100); RDW Coefficient of Variation % 13.7 % (11.5-15.5); Red Blood Count* 3.72 m/uL (4.30-5.90); White Blood Count* 5.30 K/uL (4.50-11.00)
[2025-03-18 11:37] LABS: Slide Review Reflex No
[2025-03-18 11:43] LABS: Chloride* 98 mmol/L (96-114); Potassium* 4.8 mmol/L (3.6-5.1); Sodium* 130 mmol/L (135-149)
[2025-03-18 11:46] LABS: Anion Gap 8 mEq/L (7-15); Blood Urea Nitrogen* 19 mg/dL (7-30); Calcium* 9.2 mg/dL (8.4-10.6); Carbon Dioxide* 24 mmol/L (20-32); Creatinine* 0.8 mg/dL (0.5-1.5); Estimated Glomerular Filt Rate 86 ml/min; Glucose* 205 mg/dL (60-115)
[2025-03-18 12:06] LABS: Free T4 Free Thyroxine* 1.28 ng/dL (0.70-1.85)
--- OUTSIDE RECORDS SUMMARY | 2025-03-19 00:19 | XMS_ITS | Continuity of Care Document ---
Author Organization [facility] Address [address] [place] [address] Care Team Providers Care Digital Media Designer Name Role Phone RHONDA VAUGHAN Primary Care Provider Assessment No assessment recorded. Plan of Treatment Reminders Order Date Submit Date Provider Last Modified By Organization Details Last Modified Time Details Appointments None recorded. Lab urinalysis , dipstick 2024 [facility], [address], [address], [place], [address], 16:38:50 Referral None recorded. Procedures bladder scan (PROC) 2024 [facility], [facility] [facility], [address], [place], [address], 16:38:50 Surgeries None recorded. Imaging None recorded. Medication Orders alfuzosin ER 10 mg tablet,ext ended release [address] [id number], [address], [address], 16:44:22 Patient TargetsNo targets recorded. Patient Instructions Encounter Date Encounter Id Patient Instructions Last Modified By Organization Details Last Modified Time 02/25/2025 [id number] doing better chastity martino alfuzosin. will continue on this, rx converted to 90 days. rtc 6 months for UA/PVR recheck [email or web address] Not available 02/25/2025 16:42:39 Reason for Referral None Reported. Results Created Date Observation Date Name Description Value Unit Range Abnormal Flag Note LastModifiedBy Organization Detail LastModifiedTime 02/26/20 25 02/25/2025 urina lysis , dipst ick Color-Status Yellow Not Available [address], [place], [address], 02/10/2025 14:27:42 02/26/20 25 02/25/2025 urina lysis , dipst ick Clarity-Stat us Clear Not Available [address], [place], [address], 02/10/2025 14:27:42 02/26/20 25 02/25/2025 urina lysis , dipst ick Glucose-Stat us 500 Not Available [address], [place], [address], 02/10/2025 14:27:42 02/26/20 25 02/25/2025 urina lysis , dipst ick Sp Marshall-Stat us 1.020 Not Available [address], [place], [address], 02/10/2025 14:27:42 02/26/20 25 02/25/2025 urina lysis , dipst ick pH-Status 5.5 Not Available [address], [place], [address], 02/10/2025 14:27:42 02/26/20 25 02/25/2025 urina lysis , dipst ick Nitrates-Sta tus negati ve Not Available [address], [place], [address], 02/10/2025 14:27:42 02/26/2002/25/2025 urina lysis , dipst ick Blood-Status Trace Not Available [address] [place], [place], [address], 02/10/2025 14:27:42 02/26/2002/25/2025 urina lysis , dipst ick Leuko-Status Negati ve Not Available [address] [place], [place], [address], 02/10/2025 14:27:42 02/26/20 25 02/25/2025 urina lysis , dipst ick Specimen Type Voided Not Available [address] [place], [place], [address], 02/10/2025 14:27:42 02/26/2002/25/2025 bladd er scan (PROC ) Volume (in mL) 149 Not Available [address] [place], [place], [address], 02/10/2025 14:27:41 Result Notes None recorded. Problems Name Problem SNOMED Code Status Onset Date Resolution Date Notes Provider Name and Address Organization Details Recorded Time Incomplete emptying of urinary bladder 032412723 Active 2024 Kyle Heredia MD [address] [place] [address], [address], [facility] 10:52:48 Overflow incontinence of urine 614763670 Active 2024 Kyle Heredia MD [address] [place] [address],[address] [place] [address], [address], [facility] 10:57:12 Problem Notes None recorded. Procedures Surgical History Date Name Laterality Status Provider Name and Address Organization Details Recorded Time 02/26/20 25 Bladder Scan completed Kyle Heredia MD [address] [place] [address],[address], [place], [address], [facility] 02/25/2025 16:36:38 01/15/20 25 Bladder Scan completed Kyle Heredia MD [address] [place] [address],[address], [place], [address], [facility] 01/14/2025 10:44:13 06/18/19 25 Bladder Scan completed Kyle Heredia MD [address] [place] [address],[address], [place], [address], [facility] 06/18/2024 11:19:02 05/23/19 24 Bladder Scan completed Kyle Heredia MD [address] [place] [address],[address], [place], [address], [facility] 05/23/2023 11:25:15 tonsillectomy completed Kyle Heredia MD [address] [place] [address],[address], [place], [address], [facility] 05/23/2023 11:23:48 Appendectomy completed Kyle Heredia MD [address] [place] [address],[address], [place], [address], [facility] 05/23/2023 11:23:53 procedure on pancreas completed Kyle Heredia MD [address] [place] [address],[address], [address], [facility] 05/23/2023 11:24:28 Hip arthroscopy dx completed Kyle Heredia MD [address] [place] [address],[address], [place], [address], [facility] 05/23/2023 11:24:38 total knee replacement completed Kyle Heredia MD [address] [place] [address],[address], [address], [facility] 05/23/2023 11:24:45 Imaging Results None recorded. Procedure Notes None recorded. Medical Equipment None Reported. Allergies Allergen ID Allergen Name Allergen Category Reaction Reaction Severity Criticality Documentation Date Start Date Code Code System Note Provider Name and Address Organization Details Recorded Time 042436 Substance with sulfonami de structure and antibacte rial mechanism of action (substanc e) medicatio n hives Not available Not available 05/23/20232023 13973 8003 SNOMED Kyle Heredia MD [address] [place] [address],[address] [place] [address], [address], [facility] 5 11:18:33 [id number] latex environme nt,medica tion other Not available Not available 06/18/20242023 22666 91 RxNorm State s woun ds don't heal with latex paige ges Kyle Heredia MD [address] [place] [address],[address], [place], [address], [facility] 5 11:18:30 416183 mold extract environme nt Not available Not available Not available 01/14/20252019 66918 8 RxNorm Kyle Heredia MD [address] [place] [address],[address] [place] [address], [address], [facility] 5 10:43:47 Medications Name Sig Start Date Stop Date Status Note LastModified by Organization Details LastModified Time losartan 50 mg tablet TAKE ONE TABLET BY MOUTH ONE TIME DAILY* active Not Available Not Available No t Available miconazole nitrate 2 % topical cream APPLY ONCE DAILY DIRECTED FOR AT LEAST 3 WEEKS.* active Not Available Not Available No t Available ofloxacin 0.3 % eye drops PLACE 3 DROPS into THE LEFT ear THREE TIMES DAILY FOR 3 DAYS 05/23 completed Not Available Not Available Not Available meclizine 12.5 mg tablet TAKE ONE-HALF TABLET BY MOUTH THREE TIMES DAILY NEEDED* active Not Available Not Available No t Available clopidogrel 75 mg tablet TAKE ONE TABLET BY MOUTH ONE TIME DAILY* active Not Available Not Available No t Available meclizine 25 mg tablet TAKE 1/2 TABLET BY MOUTH THREE TIMES DAILY 05/23 completed Not Available Not Available Not Available amlodipine 10 mg tablet TAKE ONE TABLET BY MOUTH ONE TIME DAILY* active Not Available Not Available No t Available cephalexin 500 mg capsule Take 1 capsule by mouth twice a day FOR 7 days for toe infection * 05/23 completed Not Available Not Available Not Available Desenex 2 % topical powder USE DAILY DIRECTED FOR AT LEAST 3 WEEKS.* active Not Available Not Available No t Available losartan 100 mg tablet TAKE ONE TABLET BY MOUTH ONE TIME DAILY* 06/18 completed Not Available Not Available Not Available metformin ER 500 mg tablet,exte nded release 24 hr TAKE TWO TABLETS by mouth TWICE DAILY WITH MEALS* active Not Available Not Available No t Available alfuzosin ER 10 mg tablet,exte nded release 24 hr TAKE ONE TABLET BY MOUTH ONE TIME DAILY in the evening.* active Not Available Not Available No t Available Januvia 100 mg tablet TAKE 1 TABLET BY MOUTH DAILY 05/23 completed Not Available Not Available Not Available Lantus Solostar U-100 Insulin 100 unit/mL (3 mL) subcutaneou s pen Inject 30 units by subcutane ous route once a day* active Not Available Not Available No t Available UltiCare Pen Needle 32 gauge x USE 1 NEEDLE TWICE DAILY DIRECTED. * active Not Available Not Available No t Available Eliquis 5 mg tablet TAKE ONE TABLET BY MOUTH TWICE DAILY* active Not Available Not Available No t Available Jardiance 10 mg tablet TAKE ONE TABLET BY MOUTH ONE TIME DAILY* 05/23 completed Not Available Not Available Not Available True Metrix Glucose Test Strip USE TO TEST BLOOD GLUCOSE LEVELS TWICE DAILY; FASTING GLUCOSE AND AFTER ALTERNATI NG MEALS.* active Not Available Not Available No t Available Paxlovid 150 mg-100 mg tablets in a dose pack (Moderate Renal Dose) Take 1 nirmatrel vir 150 mg pink-oval tablets and 1 ritonavir 100 mg white-ova l tablet together twice daily for 5 days.* 05/23 completed Not Available Not Available Not Available Vitals Date Recorded Body height Body mass index (BMI) Body weight Provider Name and Address Organization Details Last Updated DateTime 02/25/2025 180.34 cm 27.1 kg/m2 77802.92 g Kyle Heredia MD [address] [place] [address],[address], [address] 02/25/2025 16:36:50 Social History Question Answer Notes LastModified by Organizat ion Details LastModified Time Tobacco Smoking Status Former Smoker Kyle Heredia MD [address] [place] [address],[address], [address], [facility] 05/23/2023 11:23:28 What Is Your Level Of Caffeine Consumption? Moderate [email or web address] Information not available 05/23/2023 When Did You Quit Smoking? 16+yearssince lastcigarette [email or web address] Information not available 05/23/2023 What Was The Date Of Your Most Recent Tobacco Screening? 02/25/2025 Information not available 02/25/2025 Has Tobacco Cessation Counseling Been Provided? No [email or web address] Information not available 06/18/2024 Sex: Male Functional Status Question Answer Note LastModified by Organizat ion Details LastModified Time Do you use any illicit or recreational drugs? No [email or web address] Information not available 06/18/2024 Do you or have you ever used any other forms of tobacco or nicotine? No [email or web address] Information not available 06/18/2024 What is your level of alcohol consumption? None [email or web address] Information not available 05/23/2023 Mental Status None recorded. Family History Relationship Description Onset Age of this Age Resolved Age Notes LastModified by Organization Details LastModified Time Father Family history of Hypertension [email or web address] Not available 11:22:40 Mother Family history of diabetes mellitus Not available 05/23 11:22:57 Medical History Condition Response Sexually Transmitted Infection N Diabetes Y Other N Bleeding Disorder N High Blood Pressure Y Kidney Stones N High Cholesterol N GERD/Acid Reflux N Heart Disease N Cancer N Depression N Lung Disease N Immunizations Vaccine Type Date Status Note Provider Nam e and Address Organization Details Recorded Time Influenza, split virus, quadrivalent, preservative 3 completed Kyle Heredia MD [address] [place] [address],[address], [address], [facility] 06/18/2024 11:17:56 Influenza, high-dose, quadrivalent, PF 2 completed Kyle Heredia MD [address] [place] [address],[address], [address], [facility] 06/18/2024 11:17:56 Influenza, high-dose, quadrivalent, PF 1 completed Kyle Heredia MD [address] [place] [address],[address], [address], [facility] 06/18/2024 11:17:56 meningococcal MPSV4 6 completed Kyle Heredia MD [address] [place] [address],[address], [place], [address], [facility] 06/18/2024 11:17:56 COVID-19, mRNA, LNP-S, PF, 30 mcg/0.3 mL dose 1 completed Kyle Heredia MD [address] [place] [address],[address], [place], [address], [facility] 06/18/2024 11:17:56 COVID-19, mRNA, LNP-S, PF, 30 mcg/0.3 mL dose 1 completed Kyle Heredia MD [address] [place] [address],[address], [place], [address], [facility] 06/18/2024 11:17:56 COVID-19, mRNA, LNP-S, PF, 30 mcg/0.3 mL dose 1 completed Kyle Heredia MD [address] [place] [address],[address], [place], [address], [facility] 06/18/2024 11:17:56 pneumococcal polysaccharide PPV23 2 completed Kyle Heredia MD [address] [place] [address],[address], [place], [address], [facility] 06/18/2024 11:17:56 pneumococcal polysaccharide PPV23 6 completed Kyle Heredia MD [address] [place] [address],[address], [place], [address], [facility] 06/18/2024 11:17:56 pneumococcal polysaccharide PPV23 0 completed Kyle Heredia MD [address] [place] [address],[address], [place], [address], [facility] 06/18/2024 11:17:56 Tdap 2 completed Kyle Heredia MD [address] [place] [address],[address], [place], [address], [facility] 06/18/2024 11:17:56 Pneumococcal conjugate PCV 13 7 completed Kyle Heredia MD [address] [place] [address],[address], [place], [address], [facility] 06/18/2024 11:17:56 zoster live 1 completed Kyle Heredia MD [address] [place] [address],[address], [place], [address], [facility] 06/18/2024 11:17:56 Influenza, high-dose, trivalent, PF 7 completed Kyle Heredia MD [address] [place] [address],[address], [place], [address], [facility] 06/18/2024 11:17:56 Influenza, high-dose, trivalent, PF 7 completed Kyle Heredia MD [address] [place] [address],[address], [place], [address], [facility] 06/18/2024 11:17:56 Influenza, high-dose, trivalent, PF 8 completed Kyle Heredia MD [address] [place] [address],[address], [place], [address], [facility] 06/18/2024 11:17:56 Influenza, high-dose, trivalent, PF 4 completed Kyle Heredia MD [address] [place] [address],[address], [place], [address], [facility] 06/18/2024 11:17:56 Influenza, high-dose, trivalent, PF 2 completed Kyle Heredia MD [address] [place] [address],[address], [place], [address], [facility] 06/18/2024 11:17:56 Influenza, split virus, trivalent, preservative 2 completed Kyle Heredia MD [address] [place] [address],[address], [place], [address], [facility] 06/18/2024 11:17:56 Influenza, split virus, trivalent, preservative 5 completed Kyle Heredia MD [address] [place] [address],[address], [place], [address], [facility] 06/18/2024 11:17:56 Influenza, split virus, trivalent, preservative 6 completed Kyle Heredia MD [address] [facility],[address], [place], [address], [facility] 06/18/2024 11:17:56 Influenza, split virus, trivalent, PF 8 completed Kyle Heredia MD [address] [place] [address],[address], [place], [address], [facility] 06/18/2024 11:17:56 Influenza, split virus, trivalent, PF 0 completed Kyle Heredia MD [address] [place] [address],[address] [facility], [place], [address], [facility] 06/18/2024 11:17:56 Hib (HbOC) 6 completed Kyle Heredia MD [address] [place] [address],[address], [address], [facility] 06/18/2024 11:17:56 Td (adult), 2 Lf tetanus toxoid, preservative free, adsorbed 4 completed Not Available [facility]/25/[facility] 16:19:03 Past Encounters Encounter ID Performer Location Encounter Start Date Encounter Closed Date Diagnosis/Indication Diagnosis SNOMED-CT Code Diagnosis ICD10 Code Diagnosis IMO Codes Diagnosis Note [id number] [facility] [address] [address] 02/25/2025 16:18:18 03/04/2025 10:44:42 Incomplete emptying of urinary bladder 240772975 R33.9 77071 Health Concerns Section Related Observation LastModified by Organization Detai ls LastModified Time None Recorded Concern Status LastModified by Organization Details LastModified Time None Recorded Payers Encounter Date Sequence Insurance Name Policy Number Policy Harden Covered Member ID Harden Member ID Guarantor Name 02/25/2025 1 [place] [employer] Inocente Marie [id number] Inocente Marie 02/25/2025 2 [place] [id number] Inocente Marie [id number] Inocente Marie Notes Date Note Type Note Provider Name and Address Organization Details Recorded Time 02/25/2025 text/html follow up KEENA. PVR 149ml today, down from 580ml last visit . taking alfuzosin without problems. UA tr RBC. no leaking at night now. Kyle Heredia MD [address] [facility],[place] [address], [place], [address], [facility] 02/25/2025 16:44:59
--- OUTSIDE RECORDS SUMMARY | 2025-03-19 00:19 | XMS_ITS | Data Portability ---
Author Organization [facility], UA[facility]Short Address [address] [place] [address] Care Team Providers Care Transit Manager Name Role Phone RHONDA VAUGHAN Primary Care Provider Assessment No assessment recorded. Plan of Treatment Reminders Order Date Submit Date Provider Last Modified By Organization Details Last Modified Time Details Appointments None recorded. Lab [facility]inalysis , dipstick [facility]24 [email or web address] [address], [address], [place], [address], 5 16:38:50 urinalysis , dipstick 2024 025 GRIS [facility], [address], [address], [place], [address], 5 13:26:33 urinalysis , dipstick [email or web address], [address], [address], [place], [address], 5 11:27:38 urinalysis , dipstick 2023 024 [email or web address] [facility], [address], [address], [place], [address], 4 11:26:23 Referral None recorded. Procedures bladder scan (PROC) 2024 025 [facility], [address], [address], [place], [address], 5 16:38:50 bladder scan (PROC) [address], [address], [address], [place], [address], 5 10:55:23 bladder scan (PROC) [address], [address], [address], [place], [address], 5 11:27:38 bladder scan (PROC) [address], [address], [address], [place], [address], 4 11:26:22 Surgeries None recorded. Imaging None recorded. Medication Orders alfuzosin ER 10 mg tablet,ext ended release 24 hr 2024 025 [id number], [address], [address], 5 16:44:22 alfuzosin ER 10 mg tablet,ext ended release 24 hr 2024 025 [id number], [address], [address], 5 10:55:25 Patient TargetsNo targets recorded. Patient Instructions Encounter Date Encounter Id Patient Instructions Last Modified By Organization Details Last Modified Time 05/23/2023 [id number] will get a PSA done today. call with report and if OK follow up 1 year with PSA. [email or web address] Not available 05/23/2023 11:41:49 06/18/2024 [id number] doing well stable/slight rise in PSA. will plan rtc 1 year with PSA for UA and PVR check. [email or web address] Not available 06/18/2024 11:27:37 01/14/2025 [id number] alfuzosin trial, recheck 1month for UA/PVR [email or web address] Not available 01/14/2025 10:53:58 02/25/2025 [id number] doing better wit h alfuzosin. will continue on this, rx converted to 90 days. rtc 6 months for UA/PVR recheck [email or web address] Not available 02/25/2025 16:42:39 Reason for Referral None Reported. Results Created Date Observation Date Name Description Value Unit Range Abnormal Flag Note LastModifiedBy Organization Detail LastModifiedTime 05/23/19 24 05/23/2023 bladd er scan (PROC ) Volume (in mL) 58ml Not Available [address], [place], [address], 05/23/2023 11:26:05 05/23/19 24 05/23/2023 urina lysis , dipst ick Glucose-Stat us 500 Not Available [address], [place], [address], 05/23/2023 11:25:20 05/23/19 24 05/23/2023 urina lysis , dipst ick pH-Status 6.0 Not Available [address], [place], [address], 05/23/2023 11:25:20 05/23/19 24 05/23/2023 urina lysis , dipst ick Blood-Status Trace Not Available [address], [place], [address], 05/23/2023 11:25:20 06/18/19 25 06/18/2024 urina lysis , dipst ick Color-Status Yellow Not Available [address], [place], [address], 06/14/2024 13:03:38 06/18/19 25 06/18/2024 urina lysis , dipst ick Clarity-Stat us Clear Not Available [address], [place], [address], 06/14/2024 13:03:38 06/18/19 25 06/18/2024 urina lysis , dipst ick Glucose-Stat us 100 Not Available [address], [place], [address], 06/14/2024 13:03:38 06/18/19 25 06/18/2024 urina lysis , dipst ick Sp Odin-Stat us 1.015 Not Available [address], [place], [address], 06/14/2024 13:03:38 06/18/19 25 06/18/2024 urina lysis , dipst ick pH-Status 6.5 Not Available [address], [place], [address], 06/14/2024 13:03:38 06/18/19 25 06/18/2024 urina lysis , dipst ick Nitrates-Sta tus negati ve Not Available [address], [place], [address], 06/14/2024 13:03:38 06/18/19 25 06/18/2024 urina lysis , dipst ick Blood-Status Trace Not Available [address], [place], [address], 06/14/2024 13:03:38 06/18/19 25 06/18/2024 urina lysis , dipst ick Leuko-Status Negati ve Not Available [address], [place], [address], 06/14/2024 13:03:38 06/18/19 25 06/18/2024 urina lysis , dipst ick Specimen Type Voided Not Available [address], [place], [address], 06/14/2024 13:03:38 06/18/19 25 06/18/2024 bladd er scan (PROC ) Volume (in mL) 292 Not Available [address], [place], [address], 06/14/2024 13:03:35 01/15/20 25 01/14/2025 urina lysis , dipst ick Color-Status Yellow Not Available [address], [place], [address], 01/14/2025 10:52:54 01/15/20 25 01/14/2025 urina lysis , dipst ick Clarity-Stat us Clear Not Available [address], [place], [address], 01/14/2025 10:52:54 01/15/20 25 01/14/2025 urina lysis , dipst ick Sp Odin-Stat us 1.015 Not Available [address], [place], [address], 01/14/2025 10:52:54 01/15/20 25 01/14/2025 urina lysis , dipst ick Glucose-Stat us 250 Not Available [address], [place], [address], 01/14/2025 10:52:54 01/15/2001/14/2025 urina lysis , dipst ick pH-Status 7.0 Not Available [address], [place], [address], 01/14/2025 10:52:54 01/15/20 25 01/14/2025 urina lysis , dipst ick Specimen Type Voided Not Available [address], [place], [address], 01/14/2025 10:52:54 01/15/20 25 01/14/2025 urina lysis , dipst ick Leuko-Status Negati ve Not Available [address], [place], [address], 01/14/2025 10:52:54 01/15/20 25 01/14/2025 urina lysis , dipst ick Blood-Status Trace Not Available [address], [place], [address], 01/14/2025 10:52:54 01/15/20 25 01/14/2025 urina lysis , dipst ick Nitrates-Sta tus negati ve Not Available [address], [place], [address], 01/14/2025 10:52:54 01/15/2001/14/2025 urina lysis , dipst ick Performed by WHITNEY Larios Not Available [address], [place], [address], 01/14/2025 10:52:54 01/15/2001/14/2025 bladd er scan (PROC ) Volume (in mL) 580 Not Available [address], [place], [address], 01/07/2025 09:40:07 02/26/2002/25/2025 urina lysis , dipst ick Color-Status Yellow Not Available [address], [place], [address], 02/10/2025 14:27:42 02/26/20 25 02/25/2025 urina lysis , dipst ick Clarity-Stat us Clear Not Available [address], [place], [address], 02/10/2025 14:27:42 02/26/20 25 02/25/2025 urina lysis , dipst ick Glucose-Stat us 500 Not Available [address], [place], [address], 02/10/2025 14:27:42 02/26/20 25 02/25/2025 urina lysis , dipst ick Sp Odin-Stat us 1.020 Not Available [address], [place], [address], 02/10/2025 14:27:42 02/26/2002/25/2025 urina lysis , dipst ick pH-Status 5.5 Not Available [address], [place], [address], 02/10/2025 14:27:42 02/26/2002/25/2025 urina lysis , dipst ick Nitrates-Sta tus negati ve Not Available [address], [place], [address], 02/10/2025 14:27:42 02/26/2002/25/2025 urina lysis , dipst ick Blood-Status Trace Not Available [address], [place], [address], 02/10/2025 14:27:42 02/26/2002/25/2025 urina lysis , dipst ick Leuko-Status Negati ve Not Available [address], [place], [address], 02/10/2025 14:27:42 02/26/20 25 02/25/2025 urina lysis , dipst ick Specimen Type Voided Not Available [address], [place], [address], 02/10/2025 14:27:42 02/26/2002/25/2025 bladd er scan (PROC ) Volume (in mL) 149 Not Available [address], [place], [address], 02/10/2025 14:27:41 Result Notes None recorded. Problems Name Problem SNOMED Code Status Onset Date Resolution Date Notes Provider Name and Address Organization Details Recorded Time Incomplete emptying of urinary bladder 493424131 Active 2024 Kyle Heredia MD [address] [place] [address],[address], [place], [address], [facility] 5 10:52:48 Overflow incontinence of urine 625262813 Active 2024 Kyle Heredia MD [address] [place] [address],[address], [place], [address], [facility] 10:57:12 Problem Notes None recorded. Procedures Surgical History Date Name Laterality Status Provider Name and Address Organization Details Recorded Time 02/26/20 25 Bladder Scan completed Kyle Heredia MD [address] [place] [address],[address], [place], [address], [facility] 02/25/2025 16:36:38 01/15/20 25 Bladder Scan completed Kyle Heredia MD [address] [place] [address],[address], [place], [address], [facility] 01/14/2025 10:44:13 06/18/19 25 Bladder Scan completed Kyle Heredia MD [address] [place] [address],[address] [place] [address], [address], [facility] 06/18/2024 11:19:02 05/23/19 24 Bladder Scan completed Kyle Heredia MD [address] [place] [address],[address] [place] [address], [address], [facility] 05/23/2023 11:25:15 tonsillectomy completed Kyle Heredia MD [address] [place] [address],[address], [place], [address], [facility] 05/23/2023 11:23:48 Appendectomy completed Kyle Heredia MD [address] [place] [address],[facility] [address], [place], [address], [facility] 05/23/2023 11:23:53 procedure on pancreas completed Kyle Heredia MD [address] [place] [address],[address], [place], [address], [facility] 05/23/2023 11:24:28 Hip arthroscopy dx completed Kyle Heredia MD [address] [place] [address],[address], [place], [place], [address] [place] [address], [facility] 05/23/2023 11:24:38 total knee replacement completed Kyle Heredia MD [address] [place] [address],[facility] [address], [place], [address] [place] [address], [facility] 05/23/2023 11:24:45 Imaging Results None recorded. Procedure Notes None recorded. Medical Equipment None Reported. Allergies Allergen ID Allergen Name Allergen Category Reaction Reaction Severity Criticality Documentation Date Start Date Code Code System Note Provider Name and Address Organization Details Recorded Time 483102 Substance with sulfonami de structure and antibacte rial mechanism of action (substanc e) medicatio n hives Not available Not available 05/23/20232023 11804 8003 SNOMED Kyle Heredia MD [address] [place] [address],[address] [place] [address], [facility] 5 11:18:33 751180 latex environme nt,medica tion other Not available Not available 06/18/20242023 77105 91 RxNorm State s woun ds don't heal with latex paige ges Kyle Heredia MD [address] [place] [address],[address] [place] [address], [facility] 5 11:18:30 024502 mold extract environme nt Not available Not available Not available 01/14/20252019 69857 8 RxNorm Kyle Heredia MD [address] [place] [address],[address] [place] [address], [facility] 5 10:43:47 Medications Name Sig Start [...] Available UltiCare Pen Needle 32 gauge x 5/32 USE 1 NEEDLE TWICE DAILY DIRECTED. * [...] Available Not Available Vitals Date Recorded Body weight Body mass index (BMI) Body height Provider Name and Address Organization Details Last Updated DateTime 05/23/2023 63861.92 g 27.1 kg/m2 180.34 cm Kyle Heredia MD [address] [place] [address],[place] [address], [facility] 05/23/2023 11:20:42 Date Recorded Body height Body mass index (BMI) Body weight Provider Name and Address Organization Details Last Updated DateTime 06/18/2024 180.34 cm 27.1 kg/m2 34034.92 g Kyle Heredia MD [address] [place] [address],[place] [address], [facility] 06/18/2024 11:17:50 Date Recorded Body height Body mass index (BMI) Body weight Provider Name and Address Organization Details Last Updated DateTime 01/14/2025 180.34 cm 27.1 kg/m2 98460.92 g Kyle Heredia MD [address] [place] [address] [facility] 01/14/2025 10:43:41 Date Recorded Body height Body mass index (BMI) Body weight Provider Name and Address Organization Details Last Updated DateTime 02/25/2025 180.34 cm 27.1 kg/m2 40296.92 g Kyle Heredia MD [address] [place] [address],[address] [facility] 02/25/2025 16:36:50 Social History Question Answer Notes LastModified by Organizat ion Details LastModified Time Tobacco Smoking Status Former Smoker Kyle Heredia MD [address] [place] [address],[address], [address], [facility] 05/23/2023 11:23:28 What Is Your Level Of Caffeine Consumption? Moderate Information not available 05/23/2023 When Did You Quit Smoking? 16+yearssince lastcigarette [email or web address] Information not available 05/23/2023 What Was The Date Of Your Most Recent Tobacco Screening? 02/25/2025 [email or web address] Information not available 02/25/2025 Has Tobacco Cessation Counseling Been Provided? No [email or web address] Information not available 06/18/2024 Sex: Male Functional Status Question Answer Note LastModified by Organizat ion Details LastModified Time Do you use any illicit or recreational drugs? No [email or web address] Information not available 06/18/2024 Do you or have you ever used any other forms of tobacco or nicotine? No [email or web address] Information not available 06/18/2024 What is your level of alcohol consumption? None [email or web address] Information not available 05/23/2023 Mental Status None recorded. Family History Relationship Description Onset Age of this Age Resolved Age Notes LastModified by Organization Details LastModified Time Father Family history of Hypertension Not available 11:22:40 Mother Family history of diabetes mellitus [email or web address] Not available 05/23 11:22:57 Medical History Condition [...] quadrivalent, preservative 3 completed Kyle Heredia MD [address] [place] [address],[address], [address], [facility] 06/18/2024 11:17:56 Influenza, high-dose, quadrivalent, PF 2 completed Kyle Heredia MD [address] [place] [address],[address], [address], [facility] 06/18/2024 11:17:56 Influenza, high-dose, quadrivalent, PF 1 completed Kyle Heredia MD [address] [place] [address],[address], [address], [facility] 06/18/2024 11:17:56 meningococcal MPSV4 6 completed Kyle Heredia MD [address] [place] [address],[address], [address], [facility] 06/18/2024 11:17:56 COVID-19, mRNA, LNP-S, PF, 30 mcg/0.3 mL dose 1 completed Kyle Heredia MD [address] [place] [address],[address], [address], [facility] 06/18/2024 11:17:56 COVID-19, mRNA, LNP-S, PF, 30 mcg/0.3 mL dose 1 completed Kyle Heredia MD [address] [place] [address],[address], [place], [address], [facility] 06/18/2024 11:17:56 COVID-19, mRNA, LNP-S, PF, 30 mcg/0.3 mL dose 1 completed Kyle Heredia MD [address] [place] [address],[address], [place], [address], [facility] 06/18/2024 11:17:56 pneumococcal polysaccharide PPV23 2 completed Kyle Heredia MD [address] [place] [address],[address], [place], [address], [facility] 06/18/2024 11:17:56 pneumococcal polysaccharide PPV23 6 completed Kyle Heredia MD [address] [place] [address],[address], [place], [address], [facility] 06/18/2024 11:17:56 pneumococcal polysaccharide PPV23 0 completed Kyle Heredia MD [address] [place] [address],[address], [place], [address], [facility] 06/18/2024 11:17:56 Tdap 2 completed Kyle Heredia MD [address] [place] [address],[address], [place], [address], [facility] 06/18/2024 11:17:56 Pneumococcal conjugate PCV 13 7 completed Kyle Heredia MD [address] [place] [address],[address], [place], [address], [facility] 06/18/2024 11:17:56 zoster live 1 completed Kyle Heredia MD [address] [place] [address],[address], [place], [address], [facility] 06/18/2024 11:17:56 Influenza, high-dose, trivalent, PF 7 completed Kyle Heredia MD [address] [place] [address],[address], [place], [address], [facility] 06/18/2024 11:17:56 Influenza, high-dose, trivalent, PF 7 completed Kyle Heredia MD [address] [place] [address],[address], [place], [address], [facility] 06/18/2024 11:17:56 Influenza, high-dose, trivalent, PF 8 completed Kyle Heredia MD [address] [place] [address],[address], [place], [address], [facility] 06/18/2024 11:17:56 Influenza, high-dose, trivalent, PF 4 completed Kyle Heredia MD [address] [place] [address],[facility] [address], [place], [address], [facility] 06/18/2024 11:17:56 Influenza, high-dose, trivalent, PF 2 completed Kyle Heredia MD [address] [place] [address],[facility] [address], [place], [address], [facility] 06/18/2024 11:17:56 Influenza, split virus, trivalent, preservative 2 completed Kyle Heredia MD [address] [place] [address],[facility] [address], [place], [address], [facility] 06/18/2024 11:17:56 Influenza, split virus, trivalent, preservative 5 completed Kyle Heredia MD [address] [place] [address],[address], [address], [facility] 06/18/2024 11:17:56 Influenza, split virus, trivalent, preservative 6 completed Kyle Heredia MD [address] [place] [address],[address], [address], [facility] 06/18/2024 11:17:56 Influenza, split virus, trivalent, PF 8 completed Kyle Heredia MD [address] [place] [address],[address], [address], [facility] 06/18/2024 11:17:56 Influenza, split virus, trivalent, PF 0 completed Kyle Heredia MD [address], [place], [address], [facility] 06/18/2024 11:17:56 Hib (HbOC) 6 completed Kyle Heredia MD [address], [place], [address], [facility] 06/18/2024 11:17:56 Td (adult), 2 Lf tetanus toxoid, preservative free, adsorbed 4 completed Not Available [facility] 02/25/2025 16:19:03 Past Encounters Encounter ID Performer Location Encounter Start Date Encounter Closed Date Diagnosis/Indication Diagnosis SNOMED-CT Code Diagnosis ICD10 Code Diagnosis IMO Codes Diagnosis Note [id number] Kyle Heredia MD [address] [address] 05/23/2023 11:02:29 05/29/2023 11:06:58 Increased frequency of urination 988270358 R35.0 History of malignant neoplasm of prostate 703772787 Z85.46 [id number] [facility] [address] [address] 06/18/2024 11:08:11 06/20/2024 10:53:37 History of malignant neoplasm of prostate 989015832 Z85.46 2004, [facility] XRT [id number] [facility] [address] [address] 01/14/2025 10:30:31 01/16/2025 09:55:53 Incomplete emptying of urinary bladder 473089627 R33.9 92479 Overflow i ncontinence of urine 697101450 N39.490 [id number] MD ALONSO [place] [address] [place] [address] 02/25/2025 16:18:18 03/04/2025 10:44:42 Incomplete emptying of urinary bladder 862952887 R33.9 25433 Health Concerns Section Related Observation LastModified by Organization Detai ls LastModified Time None Recorded Concern Status LastModified by Organization Details LastModified Time None Recorded Advance Directives Directive None Recorded Payers Insurance Date Sequence Insurance Name Policy Number Policy Harden Covered Member ID Harden Member ID Guarantor Name 05/29/2023 2 [place] Inocente R Buysman [id number] 1 Inocente R Buysman 02/22/2025 1 [place] [employer] Inocente R Buysman [id number] 1 Inocente R Buysman 03/04/2025 2 [place] [id number] Inocente R Buysman [id number] Inocente R Buysman Notes Date Note Type Note Provider Name and Address Organization Details Recorded Time 05/23/2023 text/html new patient recently moved from [facility] CaP 2004 got XRT then, TURP 2018. PSA generally about 1 and last was done a year ago with Urology there. UA bland and PVR 58ml today. denies heme/dysuria. takes plavix. Kyle Heredia MD [address] [place] [address],[address], [address], [facility] 05/23/2023 11:42:04 06/18/2024 text/html follow up CaP, dx 2004 got XRT and then TURP in 2018, PSA 1.87 two weeks ago. voiding OK, occasional small leaks. UA bland and PVR 292ml today (58ml last year). on no bladder or prostate meds. Kyle Heredia MD [address] [place] [address],[address] [place] [address], [address], [facility] 06/18/2024 11:30:07 01/14/2025 text/html seeing for follow up KEENA lately having nocturnal leaking. PVR t0day up to 580ml today, UA bland tr RBC. Kyle Heredia MD [address] [place] [address],[address], [place], [address], [facility] 01/14/2025 10:57:25 02/25/2025 text/html follow up KEENA. PVR 149ml today, down from 580ml last visit . taking alfuzosin without problems. UA tr RBC. no leaking at night now. Kyle Heredia MD [address] [facility],[address], [place], [address], [facility] 02/25/2025 16:44:59
--- OUTSIDE RECORDS SUMMARY | 2025-03-19 00:19 | XMS_ITS | Clinical Summary ---
Author Organization [employer] [facility] & [facility] Address [address] [place] [id number] Care Team Providers Care Document Image Technician Name Role Phone No Machado MD [...] SQUARED TOE POST OP LEIFE, GILES, REF: [phone] Active Social History Tobacco Use Types Packs/Day Years Used Date Smoking Tobacco: Former Cigarettes Pipe Smokeless Tobacco: Never Tobacco Cessation:Counseling Given: Yes Alcohol Use Standard Drinks/Week Comments Not Currently 0 (1 standard drink = 0.6 oz pur e alcohol) Sex and Gender Information Value Date Recorded Sex Assigned at Not on file 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 Gender Identity Not on file Sexual Orientation Not on file Obstetrics History Last Filed Vital Signs Vital Sign Reading Time Taken Comments Blood Pressure 142/73 10/31/2023 3:50 PM CDT Pulse 82 10/31/2023 3:50 PM CDT Temperature 36.8 C (98.2 F) 06/15/2023 10:23 AM SKIN PASS OPERATOR Respiratory Rate 16 06/08/2023 12:10 PM SKIN PASS OPERATOR Oxygen Saturation 96% 10/31/2023 3:50 PM CDT Inhaled Oxygen Concentration - - Weight 83 kg (182 lb 14.4 oz) 06/08/2023 11:00 A M SKIN PASS OPERATOR Height 180.3 cm (5' 11) 06/08/2023 11:00 AM SKIN PASS OPERATOR Body Mass Index 25.51 06/08/2023 11:00 AM SKIN PASS OPERATOR Plan of Treatment Health Maintenance Due Date [...] or (1 - 1-dose 75+ series) 2013 Influenza Vaccine (#1) 2025 Hepatitis B series for 19+ Aged Out N o longer eligible based on patient's age to complete this topic Insurance MEDICARE PART B HB ONLY [facility] MEDICARE PB ONLY MEDICARE PART A HB ONLY Advance Directives * Full Code (Latest Code Status on File) Date Activated Date Inactivated Comments 06/08/2023 10:56 AM 06/08/2023 3:27 PM Question Answer Comments Code Status Discussion: Unable to Assess Preferences, Provider to review later Care Teams Document Image Technician Relationship Specialty Start Date End Date No Machado MD [address] [place] [id number] PCP - General Family Practice 05/23/23
[2025-03-20 01:42] LABS: Total T4, Thyroxine 7.43 ug/dL (4.50-11.70)
[2025-03-23 10:10] LABS: Free T3 2.6 pg/mL (2.5-4.3)
== END 2025-03-18 11:00 | disposition home or self-care (01) ==
LOC: NPINS 10:59
PROVIDERS: PCP Nurse Practitioner Gerontology; Visit Provider Nurse Practitioner Gerontology
DX: I49.9 Cardiac arrhythmia, unspecified (principal)
CPT/HCPCS: 80048; 83735; 84436; 84439; 84443; 84480; 84481; 85025

== ENCOUNTER 2025-03-24 08:11 | Outpatient (CLI) | payer MEDICARE, BC, SELFPAY | END 2025-03-24 08:12 | disposition home or self-care (01) | PROVIDERS: PCP Nurse Practitioner Gerontology; Visit Provider Nurse Practitioner Gerontology | DX: I49.9 Cardiac arrhythmia, unspecified (principal); I51.7 Cardiomegaly; I35.2 Nonrheumatic aortic (valve) stenosis with insufficiency; I48.91 Unspecified atrial fibrillation | CPT/HCPCS: 93306 ==

== ENCOUNTER 2025-04-01 10:18 | Outpatient (REF) | payer MEDICARE, BC, SELFPAY ==
[2025-04-01 10:34] LABS: Appearance Urine Clear (Clear)
== END 2025-04-01 10:19 | disposition home or self-care (01) ==
LOC: NPINS 10:18
PROVIDERS: PCP Nurse Practitioner Gerontology; Visit Provider Nurse Practitioner Adult Health
DX: R35.0 Frequency of micturition (principal)
CPT/HCPCS: 81001; 81003; 87086

== ENCOUNTER 2025-04-29 10:27 | Outpatient (REF) | payer MEDICARE, BC, SELFPAY ==
--- OUTSIDE RECORDS SUMMARY | 2021-03-15 15:54 | XMS_ITS | Continuity of Care Document ---
Author Organization [facility] Address [address] [place] [address] Phone Care Team Providers Care Evaluation Specialist Name Role Phone Erasmo GARZA, Naveen Unavailable [...] Encounter Disposition [facility], [address], [place], [id number], [place] tel:[phone] [facility] No Information 1 Erasmo Hodge. [address] , [place], [place], [id number] , [place]. tel:[phone] [facility], [address] , [place], [place], [id number], [place] tel:[phone] [facility] No Information 0 Erasmo Hodge. [address] , [place], [place], [id number] , [place]. tel:[phone] Family History Family Member Type Diagnosis Age [...]
[2025-04-29 11:40] LABS: Hematocrit* 38.2 % (37.0-53.0); Hemoglobin* 12.7 gm/dL (13.5-17.5); Immature Granulocytes Abs Auto 0.01 K/uL (0.00-0.30); Immature Granulocytes Pct Auto 0.1 %; Mean Corpuscular HGB Conc 33 gm/dL (32-36); Mean Corpuscular Hemoglobin 32 pg (26-34); Mean Corpuscular Volume 97 fL (80-100); RDW Coefficient of Variation % 15.3 % (11.5-15.5); Red Blood Count* 3.96 m/uL (4.30-5.90); White Blood Count* 7.92 K/uL (4.50-11.00)
[2025-04-29 11:49] LABS: Lymphocytes Absolute Auto 1.30 K/uL (0.90-2.90); Slide Review Reflex No
[2025-04-29 11:50] LABS: Chloride* 97 mmol/L (96-114); Potassium* 4.6 mmol/L (3.6-5.1); Sodium* 133 mmol/L (135-149)
[2025-04-29 11:52] LABS: Blood Urea Nitrogen* 18 mg/dL (7-30); Creatinine* 0.7 mg/dL (0.5-1.5); Estimated Glomerular Filt Rate 90 ml/min
[2025-04-29 11:53] LABS: Anion Gap 12 mEq/L (7-15); Calcium* 8.7 mg/dL (8.4-10.6); Carbon Dioxide* 24 mmol/L (20-32)
[2025-04-29 11:57] LABS: Glucose* 354 mg/dL (60-115)
--- OUTSIDE RECORDS SUMMARY | 2025-04-30 00:37 | XMS_ITS | Clinical Summary ---
Author Organization [facility] Address [address] [place] [address] Care Team Providers Care Business Manager [employer] Name Role Phone No Machado MD Primary Care Provider + Allergies Active AllergyReactionsCriticalityNoted DateCommentsLatexOther - Describe In Comment Field06/06/2023 States wounds don't heal with latex bandages Sulfa (Sulfonamide Antibiotics)Hives06/06/2023 Medications MedicationSigDispense QuantityRefillsLast FilledStart DateEnd DateStatus aspirin 81 mg cap Take 2 Capsules by mouth once daily.06/06/2023ctive losartan (COZAAR) 100 mg tablet Take 100 mg by mouth once daily.Active amLODIPine (NORVASC) 10 mg tablet Take 10 mg by mouth once daily.Active metFORMIN (GLUCOPHAGE XR) 500 mg Extended-Release tablet Take 1,000 mg by mouth once daily with evening meal.Active clopidogreL (PLAVIX) 75 mg tablet Take 75 mg by mouth every morning.05/17/2023ctive Lantus Solostar U-100 Insulin 100 unit/mL (3 mL) pen Inject 38 units subcutaneous before bedtime.Active levoFLOXacin (LEVAQUIN) 500 mg tablet Take 500 mg by mouth once daily.05/30/2023ctive durable medical equipment (DME) Indications:Osteomyelitis of second toe of right foot (HC)SQUARED TOE POST OP SHOE, LARGE, REF: [phone]/ctive Encounters DateTypeDepartmentCare HuxaKgegggaqryp31/24/2025 9:30 AM CSTOffice Visit [address] [place] [address] Tevin Pérez MD CV General Cardiology New (NEW PT; REF FOR NEW ONSET AFIB)04/14/2025Travel 04/09/20259105Okbxrc92/10/2025Orders Only [facility] Scanner 1 scan: (1-Ord) INCOMING RECORDS-LABS, [facility], Orders Only [facility] Scanner 1 scan: (1-Ord) INCOMING RECORDS-EKG, [facility], Orders Only [facility] Scanner 1 scan: (1-Ord) INCOMING RECORDS-EVENT MONITOR, [facility], 03/31/2025 03/31/2025Orders Only [facility] Scanner 1 scan: (1-Ord) INCOMING RECORDS-LABS, [facility], Orders Only [facility] [address] [place] [address] Jesusita Cruz 1 scan: (1-Ord) ZIO105/24/2024 8:00 AM CSTAncillary Procedure [facility] [address] [place] [address] from Last 3 Months Social History Tobacco UseTypesPacks/DayYears UsedDateSmoking Tobacco: FormerCigarettesPipe Smokeless Tobacco: Never Tobacco Cessation:Counseling Given: Yes Alcohol UseStandard Drinks/WeekCommentsNot Currently0 (1 standard drink = 0.6 oz pure alcohol)Sex and Gender InformationValueDate RecordedSex Assigned at Not on fileLegal LpmCoaz5905/23/2023 10:45 AM CSTGender IdentityNot on fileSexual OrientationNot on file Last Filed Vital Signs Vital SignReadingTime TakenCommentsBlood Wwxktasp681/7004/14/2025 9:43 AM SLIDE FORMING MACHINE 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 Teqda176004/14/2025 9:43 AM YNONovqhjsywqc89.8 ??C (98.2 ??F)06/15/2023 10:23 AM CSTRespiratory Arll196506/08/2023 12:10 PM CSTOxygen Dssagjtryk78%04/14/2025 9:43 AM CSTInhaled Oxygen Concentration--Pewzfd71.9 kg (185 lb)04/14/2025 9:43 AM SLIDE FORMING MACHINE OPERATOR Ksczlt994.3 cm (5' 11)04/14/2025 9:43 AM CSTBody Mass Index25.8106/14/2024 9:43 AM SLIDE FORMING MACHINE OPERATOR Plan of Treatment Health MaintenanceDue DateLast DoneCommentsTetanus dsqkfje1508/09/1949Depression screening for age 12+1Pneumococcal series for age 50+ (1 of 2 - PCV) 1957Zoster (shingles) series for age 50+ (1 of 2)1988Medicare Wellness for age 65+08/10/2003RSV vaccine for adults or (1 - 1-dose 75+ series)2013COVID-19 vaccine series ( season)2025 05/05/2021, 07/20/2020, 06/29/2020Influenza Vaccine (#1)5BMI (ht and wt on same day) for age 18+Hepatitis B series for 19+Aged OutNo longer eligible based on patient's age to complete this topic Procedures Procedure NamePriorityDate/TimeAssociated DiagnosisCommentsSCAN CORRESP-EKG IVLDEJL0603/31/2025 12:00 AM SLIDE FORMING MACHINE OPERATOR SCAN CORRESP-LABORATORY QJLNOVN5803/31/2025 12:00 AM SLIDE FORMING MACHINE OPERATOR SCAN CORRESP-LABORATORY CVMLFQR8803/31/2025 12:00 AM SLIDE FORMING MACHINE OPERATOR SCAN CORRESP-ATWSJXENGIK26/10/2025 12:00 AM SLIDE FORMING MACHINE OPERATOR ECHO TTE COMPLETE WO DZQXLVSXOoyaoka60/03/2025 8:54 AM SLIDE FORMING MACHINE OPERATOR Irregular heart beat EXTENDED AYUTJQTearwcc73/20/2025 Atrial fibrillation, unspecified type (HC) from Last 3 Months Results * SCAN CORRESP-LABORATORY RESULTS (03/31/2025 12:00 AM SLIDE FORMING MACHINE OPERATOR) Only the most recent of2 resultswithin the time period is included. Narrative Authorizing ProviderResult TypeResult StatusScannerOTHERFinal Result * SCAN CORRESP-EKG RESULTS (03/31/2025 12:00 AM SLIDE FORMING MACHINE OPERATOR) Narrative Authorizing ProviderResult TypeResult StatusScannerOTHERFinal Result * SCAN CORRESP-DIAGNOSTICS (03/31/2025 12:00 AM SLIDE FORMING MACHINE OPERATOR) Narrative Authorizing ProviderResult TypeResult StatusScannerOTHERFinal Result * ECHO TTE COMPLETE WO CONTRAST (03/24/2025 8:54 AM SLIDE FORMING MACHINE OPERATOR)ComponentValueRef Range Test MethodAnalysis TimePerformed AtPathologist SignatureAORTIC VALVE MEAN PG 18mmHgEJECTION WJMJNIFM28%PEAK TR VELOCITY2.1m/sLVEDD4.2cmEJECTION POOIBRPQ54 - 65%Anatomical RegionLateralityModalityUltrasoundSpecimen (Source)Anatomical Location / LateralityCollection Method / VolumeCollection TimeReceived Time 03/24/2025 8:21 AM SLIDE FORMING MACHINE OPERATOR Narrative 03/24/2025 10:24 AM SLIDE FORMING MACHINE OPERATOR ECHOCARDIOGRAM INOCENTE BOYLE ? Accession#: ?? [id number] : ?1940 84 years Study Date: ?? 03/24/2025 8:21:23 AM Gender: M ?BP: ? 106/60 mmHg Height: 188.00 cm ?BSA: ?2.10 m? Weight: 84.00 kg ? Tech: ? MJW ? Referring MD: CHAZ BREAUX Site: [facility] Reading Location: Mobile-OP Patient Location: Outpatient. Procedure: 2D, Color Doppler and Spectral Doppler. Indication for study: Irregular Heart Beat Cardiac Rhythm: Atrial fibrillation.Study quality: Good. Final Impressions: 1. Normal LV size, mildly increased wall thickness, normal global systolic function with an estimated EF of 60 - 65%. 2. Right ventricular cavity size is mildly enlarged, global systolic RV function is normal. 3. Moderately enlarged left atrium. 4. Color Doppler suggests a left to right atrial level shunt. 5. The aortic valve is normal, trileaflet and sclerotic, mild to moderate stenosis and mild regurgitation. The aortic valve peak velocity is 2.7 m/s, the peak gradient is 28 mmHg, and the mean gradient is 18 mmHg. The aortic valve area is 1.26 cm? with a dimensionless index of 0.37. The stroke volume index is 32.5 ml/m?. 6. The inferior vena cava is normal sized, respiratory size variation less than 50%. Chamber Sizes and Function Normal left ventricular size, mildly increased wall thickness, normal global systolic function withan estimated EF of 60 - 65%. No resting regional wall motion abnormality visualized. Left atrial size is moderately enlarged. Right ventricular cavity size is mildly enlarged, global systolic RV function is normal. The right atrium is severely enlarged. Right atrial volume index is 54 ml/m?. Right atrial area is 28 cm?. The pulmonary artery is of normal size and origin. The sinus of Valsalva is borderline. The ascending aorta is borderline. Valves, RV Pressures and Diastolic Function The aortic valve is normal in structure, trileaflet and sclerotic, mild to moderate stenosis and mild regurgitation. The mitral valve is normal in structure and sclerotic, mild mitral regurgitation. Mild mitral annular calcification is present. Indeterminate pattern of LV diastolic filling. The tricuspid valve is normal in structure, mild tricuspid regurgitation. The tricuspid regurgitant velocity is 2.1 m/s, the estimated right ventricular systolic pressure is 18 mmHg plus right atrial pressure. The pulmonic valve is normal. Mild pulmonary regurgitation. Masses, Effusion, Shunts There is no pericardial effusion. The inferior vena cava is normal sized, respiratory size variation less than 50%. Color flow Doppler suggests a left to right shunt across the interatrial septum. MEASUREMENTS AND CALCULATIONS 2-D Measurements and LV Function: LVID (d) ? 4.2 cm ? LV FS% (2D) ?? 36 % LVID (s) ? 2.7 cm ? LVOT diameter 2.1 cm IVS (d) ?1.3 cm ? HR ?90 bpm LVPW (d) ? 1.2 cm ? LA Vol index ??41 ml/m2 Ao Sinus ? 4.2 cm ? RA Vol index ??54 ml/m2 Ao Sinus ULN 4.2 cm * ? RA area ? 28 cm? Asc Ao ? 4.2 cm ? RV Basal Diam 4.5 cm Asc Ao ULN ?? 4.4 cm * ? RV Mid Diam ?? 3.3 cm LA ? 4.9 cm * Input BSA and age are outside of ranges, reported values correspond to BSA = 2.1 and Age = 80 Diastology: Mitral ?Tissue Doppler E Peak 1.2 m/s ??e', Septum ? 0.09 m/s DT ? 206 msec e', Lateral ?0.08 m/s ?E/e' Average ?? 14.52 Aortic Valve: Vmax ? 2.7 m/s ??DARVIN (V) ?? 1.19 cm? VTI ?0.54 m ?? DARVIN (I) ?? 1.26 cm? LVOT V max 0.9 m/s ??Max PG ?28 mmHg LVOT VTI ?? 0.20 m ?? Mean PG ?? 18 mmHg SV ? 68 ml ?Dim Index 0.37 SV index ?? 32 ml/m? CO ?6.1 l/min ?CI ?2.9 l/min/m? Mitral Valve: MVA ?3.7 cm? MV P 1/2 60 msec Tricuspid Valve and estimated PA pressures: TR Vmax 2.1 m/s TAPSE 2.0 cm TR maxG 18 mmHg . This study was interpreted by an [facility] accredited facility. CC: [facility]. ??Final ?? Procedure Note Pineda Mcneill MD - 03/24/2025 ECHOCARDIOGRAM INOCENTE BOYLE : 1940 84 years Study Date: 03/24/2025 8:21:23 AM Gender: M BP: 106/60 mmHg Height: 188.00 cm BSA: 2.10 m? Weight: 84.00 kg Tech: SHAVONNE Referring MD: CHAZ BREAUX Site: [facility] Reading Location: Mobile-OP Patient Location: Outpatient. Procedure: 2D, Color Doppler and Spectral Doppler. Indication for study: Irregular Heart Beat Cardiac Rhythm: Atrial fibrillation.Study quality: Good. Final Impressions: 1. Normal LV size, mildly increased wall thickness, normal globalsystolic function with an estimated EF of 60 - 65%. 2. Right ventricular cavity size is mildly enlarged, global systolic RVfunction is normal. 3. Moderately enlarged left atrium. 4. Color Doppler suggests a left to right atrial level shunt. 5. The aortic valve is normal, trileaflet and sclerotic, mild to moderate stenosis and mild regurgitation. The aortic valve peak velocity is 2.7m/s, the peak gradient is 28 mmHg, and the mean gradient is 18 mmHg. Theaortic valve area is 1.26 cm? with a dimensionless index of 0.37. Thestroke volume index is 32.5 ml/m?. 6. The inferior vena cava is normal sized, respiratory size variationless than 50%. Chamber Sizes and Function Normal left ventricular size, mildly increased wall thickness, normalglobal systolic function with an estimated EF of 60 - 65%. No restingregional wall motion abnormality visualized. Left atrial size ismoderately enlarged. Right ventricular cavity size is mildly enlarged,global systolic RV function is normal. The right atrium is severelyenlarged. Right atrial volume index is 54 ml/m?. Right atrial area is 28cm?. The pulmonary artery is of normal size and origin. The sinus ofValsalva is borderline. The ascending aorta is borderline. Valves, RV Pressures and Diastolic Function The aortic valve is normal in structure, trileaflet and sclerotic, mild to moderate stenosis and mild regurgitation. The mitral valve is normal instructure and sclerotic, mild mitral regurgitation. Mild mitral annularcalcification is present. Indeterminate pattern of LV diastolic filling.The tricuspid valve is normal in structure, mild tricuspid regurgitation.The tricuspid regurgitant velocity is 2.1 m/s, the estimated rightventricular systolic pressure is 18 mmHg plus right atrial pressure. Thepulmonic valve is normal. Mild pulmonary regurgitation. Masses, Effusion, Shunts There is no pericardial effusion. The inferior vena cava is normal sized, respiratory size variation less than 50%. Color flow Doppler suggests aleft to right shunt across the interatrial septum. MEASUREMENTS AND CALCULATIONS 2-D Measurements and LV Function: LVID (d) 4.2 cm LV FS% (2D) 36% LVID (s) 2.7 cm LVOT diameter2.1 cm IVS (d) 1.3 cm HR 90bpm LVPW (d) 1.2 cm LA Vol index 41ml/m2 Ao Sinus 4.2 cm RA Vol index 54ml/m2 Ao Sinus ULN 4.2 cm * RA area 28cm? Asc Ao 4.2 cm RV Basal Diam4.5 cm Asc Ao ULN 4.4 cm * RV Mid Diam3.3 cm LA 4.9 cm * Input BSA and age are outside of ranges, reported values correspond to BSA = 2.1 and Age = 80 Diastology: Mitral Tissue Doppler E Peak 1.2 m/s e', Septum 0.09 m/s DT 206 msec e', Lateral 0.08 m/s E/e' Average 14.52 Aortic Valve: Vmax 2.7 m/s DARVIN (V) 1.19 cm? VTI 0.54 m DARVIN (I) 1.26 cm? LVOT V max 0.9 m/s Max PG 28 mmHg LVOT VTI 0.20 m Mean PG 18 mmHg SV 68 ml Dim Index 0.37 SV index 32 ml/m? CO 6.1 l/min CI 2.9 l/min/m? Mitral Valve: MVA 3.7 cm? MV P 1/2 60 msec Tricuspid Valve and estimated PA pressures: TR Vmax 2.1 m/s TAPSE 2.0 cm TR maxG 18 mmHg . This study was interpreted by an [facility] accredited facility. CC: [facility] (med records) [facility]. Final Authorizing ProviderResult TypeResult StatusChaz PLASENCIA ORDFinal Result * EXTENDED HOLTER (03/10/2025) Narrative Authorizing ProviderResult TypeResult StatusAlice Yolie Blair MDCARDIAC SERVICES ORDFinal Result from Last 3 Months Insurance * Guarantor: Inocente Boyle TypeRelation to PatientDate of BirthPhone Billing AddressPersonal/EnromlHujj71/21/1941 [facility] [address] [place] [address] Advance Directives * Full Code (Latest Code Status on File) Date ActivatedDate InactivatedComments06/08/2023 10:56 AM06/08/2023 3:27 PM QuestionAnswerCommentsCode Status Discussion:* Unable to Assess Preferences, Provider to review later Care Teams Team MemberRelationshipSpecialtyStart DateEnd Date No Machado MD [facility] [address] [id number] [facility]
--- OUTSIDE RECORDS SUMMARY | 2025-04-30 00:37 | XMS_ITS | Data Portability ---
Author Organization [facility] Jhoanalo gy, [facility] Address [address] [place] [address] Care Team Providers Care Lab Clerk Name Role Phone RHONDA VAUGHAN Primary Care Provider Assessment No assessment recorded. Plan of Treatment Reminders Order DateSubmit DateProviderLast Modified ByOrganization DetailsLast Modified TimeDetailsAppointmentsNone recorded.Laburinalysis, ydkdocmm49 [facility], [facility] [facility], [address] [facility], [place], [address], 80 16:38:50urinalysis, imfwguut16/26/2025 01/14/2025[facility], [address] [place] [address], [address], [place], [address], 04 13:26:33urinalysis, dipstick tfle[address], [facility] [facility], [address], [place], [address], 15 11:27:38urinalysis, gbpverke87[facility]29[facility], [address] [place] [address], [address] [place], [address], 18 11:26:23 ReferralNone recorded.Proceduresbladder scan (PROC)doreilley _[facility], [address], [address], [place], [address], 80 16:38:50bladder scan (PROC)/ xqbtcfes83Sx_crqkhlal[address], [address], [address], [place], [address], 41 10:55:23bladder scan (PROC)06/14/2024 06/18/2024tf[address], [facility] [facility], [address], [place], [address], 12 11:27:38bladder scan (PROC)tf[address], [facility] [facility], [address], [place], [address], 94 11:26:22 SurgeriesNone recorded.ImagingNone recorded.Medication Ordersalfuzosin ER 10 mg tablet,extended [id number] [address], [address], 02/25/2025 16:44:22 alfuzosin ER 10 mg tablet,extended release 24 [id number], [address], [address], 01/14/2025 10:55:25 Patient TargetsNo targets recorded. Patient Instructions Encounter Date Encounter Id Patient Instructions Last Modified By Organization Details Last Modified Time 05/23/2023 [id number] will get a PSA done today. call with report and if OK follow up 1 year with PSA. Not available 05/23/2023 11:41:49 06/18/2024 [id number] doing well stable/slight rise in PSA. will plan rtc 1 year with PSA for UA and PVR check. Not available 06/18/2024 11:27:37 01/14/2025 [id number] alfuzosin trial, recheck 1month for UA/PVR qszffsyi80 Not available 01/14/2025 10:53:58 02/25/2025 [id number] doing better wit h alfuzosin. will continue on this, rx converted to 90 days. rtc 6 months for UA/PVR recheck vbryqgej44 Not available 02/25/2025 16:42:39 Reason for Referral None Reported. Results Created Date Observation Date Name Description Value Unit Range Abnormal Flag Note LastModifiedBy Organization Detail LastModifiedTime 05/23/2023 05/23/2023 bladder scan (PROC) Volume (in mL) 58m l Not AvailableUa[address] [place], [place], [address], 05/23/2023 11:26:urinalysis, dipstickGlucose-Ujuibh824Zbc Available[address] [place], [address], 05/23/2023 11:25:urinalysis, dipstickpH-Status6.0Not Available[address] [place], [address], 05/23/2023 11:25:urinalysis, dipstickBlood-StatusTraceNot Available[address] [place], [address], 05/23/2023 11:25:urinalysis, dipstickColor-StatusYellowNot Available[address], [place], [address], 06/14/2024 13:03:urinalysis, dipstickClarity-StatusClear Not Available[address], [place], [address], 06/14/2024 13:03:urinalysis, dipstickGlucose-Otozcn083Det Available[address], [place], [address], 06/14/2024 13:03:urinalysis, dipstickSp Loving-Status 1.015Not Available[address], [place], [address], 06/14/2024 13:03:/urinalysis, dipstickpH-Status6.5Not Available[address], [place], [address], 06/14/2024 13:03:urinalysis, dipstickNitrates-Status negativeNot Available[address], [place], [address], 06/14/2024 13:03:38006/18//urinalysis, dipstickBlood-StatusTraceNot Available[address], [place], [address], 06/14/2024 13:03:38006/18/urinalysis, dipstickLeuko-StatusNegative Not Available[address], [place], [address], 06/14/2024 13:03:/urinalysis, dipstickSpecimen TypeVoided Not Available[address] [place], [place], [address], 06/14/2024 13:03:/ladder scan (PROC)Volume (in mL)292Not Available[address] [place], [place], [address], 06/14/2024 13:03:3508//urinalysis, dipstickColor-StatusYellowNot Available[address] [place], [place], [address], 01/14/2025 10:52:5408/urinalysis, dipstickClarity-StatusClear Not Available[address] [place], [place], [address], 01/14/2025 10:52:5408/urinalysis, dipstickSp Loving-Status 1.015Not Available[address], [place], [address], 01/14/2025 10:52:5408/urinalysis, dipstickGlucose-Fubgga199Pjb Available[address], [place], [address], 01/14/2025 10:52:urinalysis, dipstickpH-Status7.0Not Available[address], [place], [address], 01/14/2025 10:52:urinalysis, dipstickSpecimen TypeVoided Not Available[address], [place], [address], 01/14/2025 10:52:urinalysis, dipstickLeuko-StatusNegative Not Available[address], [place], [address], 01/14/2025 10:52:urinalysis, dipstickBlood-StatusTraceNot Available[address], [place], [address], 01/14/2025 10:52:urinalysis, dipstickNitrates-Status negativeNot Available[address], [place], [address], 01/14/2025 10:52:5408urinalysis, dipstickPerformed WHITNEY Francois Not Available[address], [place], [address], 01/14/2025 10:52:5408ladder scan (PROC)Volume (in mL)580Not Available[address], [place], [address], 01/07/2025 09:40:urinalysis, dipstickColor-StatusYellowNot Available[address], [place], [address], 02/10/2025 14:27:urinalysis, dipstickClarity-StatusClear Not Available[address], [place], [address], 02/10/2025 14:27:urinalysis, dipstickGlucose-Kytoyv331Pig Available[address], [place], [address], 02/10/2025 14:27:urinalysis, dipstickSp Loving-Status 1.020Not Available[address], [place], [address], 02/10/2025 14:27:2025urinalysis, dipstickpH-Status5.5Not Available[address], [place], [address], 02/10/2025 14:27:urinalysis, dipstickNitrates-Status negativeNot Available[address] [place], [place], [address], 02/10/2025 14:27:urinalysis, dipstickBlood-StatusTraceNot Available[address] [place], [place], [address], 02/10/2025 14:27:urinalysis, dipstickLeuko-StatusNegative Not Available[address] [place], [place], [address], 02/10/2025 14:27:urinalysis, dipstickSpecimen TypeVoided Not Available[address] [place], [place], [address], 02/10/2025 14:27:ladder scan (PROC)Volume (in mL)149Not Available[address] [place], [address], 02/10/2025 14:27:41 Result Notes None recorded. Problems Name Problem SNOMED Code Status Onset Date Resolution Date Notes Provider Name and Address Organization Details Recorded Time Incomplete emptying of urinary bladder 300147832 Active 01/14/2025 Kyle Heredia MD [address] [place] [address],[address] [place] [address], [address] [place] [address], [facility]01/14/2025 10:52:48Overflow incontinence of mfjth089892868 Vpxjtd6001/14/2025Kyle Heredia MD [address] [place] [address],[address], [place], [address] [place] [address], [facility] Zuoamzi2501/14/2025 10:57:12 Problem Notes None recorded. Procedures Surgical History Date Name Laterality Status Provider Name and Address Organization Details Recorded Time 02/25/2025 Bladder Scan completedKyle Heredia MD [address] [place] [address],[place] [address], [place], [place], [address] [place] [address], [facility] 16:36:3805Blakeviner ScanLevi Heredia MD [address] [place] [address],[address], [address] [place] [address], [facility]01/14/2025 10:44:13015Blakeviner Cassi Heredia MD [address] [place] [address],[address] [place] [address], [address] [place] [address], [facility]06/18/2024 11:19:0204Blakeviner Cassi Heredia MD [address] [place] [address],[address], [place], [address] [place] [address], [facility]05/23/2023 11:25:15tonsillectomycomIrvin Heredia MD [address] [place] [address],[address] [place] [address], [address] [place] [address], [facility]05/23/2023 11:23:48AppendectomycomIrvin Heredia MD [address] [place] [address],[address], [address] [place] [address], [facility]05/23/2023 11:23:53procedure on pancreascomIrvin Heredia MD [address] [place] [address],[address], [place], [address] [place] [address], [facility]05/23/2023 11:24:28Hip arthroscopy dxLevi Heredia MD [address] [place] [address],[address]05/23/2023 11:24:38total knee replacementcompletMeghan Heredia MD [address] [place] [address],[address]05/23/2023 11:24:45 Imaging Results None recorded. Procedure Notes None recorded. Medical Equipment None Reported. Allergies Allergen ID Allergen Name Allergen Category Reaction Reaction Severity Criticality Documentation Date Start Date Code Code System Note Provider Name and Address Organization Details Recorded Time 311998 Substance with sulfo namide structure and antibacterial mechanism of action (substance) medication hives Not available Not ogwxejxhp78/[id number] Fleming, MD [address] [place] [address],[address]06/18/2024 11:18:77079645lcdqetfiutardacx,medicationother Not available Not guuaeeevo81/[id number] wounds don't heal with latex bandagesTokevin Heredia MD [address] [place] [address],[place] [address], [facility]06/18/2024 11:18:92892445brmz extractenvironmentNot available Not available Not kjeyxidba13/[id number] Fleming, MD [address] [place] [address],[address]01/14/2025 10:43:47 Medications Name Sig Start Date Stop Date Status Note LastModified by Organization Details LastModified Time losartan 50 mg tablet TAKE ONE TABLET BY MOUTH O NE TIME DAILY* activeNot AvailableNot AvailableNot Availablemiconazole nitrate 2 % topical creamAPPLY ONCE DAILY DIRECTED FOR AT LEAST 3 WEEKS.*activeNot AvailableNot AvailableNot Availableofloxacin 0.3 % eye dropsPLACE 3 DROPS into THE LEFT ear THREE TIMES DAILY FOR 3 DAYS4completedNot AvailableNot AvailableNot Availablemeclizine 12.5 mg tabletTAKE ONE-HALF TABLET BY MOUTH THREE TIMES DAILY NEEDED*activeNot AvailableNot AvailableNot Availableclopidogrel 75 mg tablet TAKE ONE TABLET BY MOUTH ONE TIME DAILY*activeNot AvailableNot AvailableNot Availablemeclizine 25 mg tabletTAKE 1/2 TABLET BY MOUTH THREE TIMES DAILY 05/23/2023ompletedNot AvailableNot AvailableNot Availableamlodipine 10 mg tabletTAKE ONE TABLET BY MOUTH ONE TIME DAILY*activeNot AvailableNot Available Not Availablecephalexin 500 mg capsuleTake 1 capsule by mouth twice a day FOR 7 days for toe infection*05/23/2023ompletedNot AvailableNot AvailableNot AvailableDesenex 2 % topical powderUSE DAILY DIRECTED FOR AT LEAST 3 WEEKS.* activeNot AvailableNot AvailableNot Availablelosartan 100 mg tabletTAKE ONE TABLET BY MOUTH ONE TIME DAILY*06/18/2024ompletedNot AvailableNot AvailableNot Availablemetformin ER 500 mg tablet,extended release 24 hrTAKE TWO TABLETS by mouth TWICE DAILY WITH MEALS*activeNot AvailableNot AvailableNot Available alfuzosin ER 10 mg tablet,extended release 24 hrTAKE ONE TABLET BY MOUTH ONE TIME DAILY in the evening.*activeNot AvailableNot AvailableNot AvailableJanuvia 100 mg tabletTAKE 1 TABLET BY MOUTH DAILY05/23/2023ompletedNot AvailableNot AvailableNot AvailableLantus Solostar U-100 Insulin 100 unit/mL (3 mL) subcutaneous penInject 30 units by subcutaneous route once a day*activeNot AvailableNot AvailableNot AvailableUltiCare Pen Needle 32 gauge x 5/32USE 1 NEEDLE TWICE DAILY DIRECTED.*activeNot AvailableNot AvailableNot Available Eliquis 5 mg tabletTAKE ONE TABLET BY MOUTH TWICE DAILY*activeNot AvailableNot AvailableNot AvailableJardiance 10 mg tabletTAKE ONE TABLET BY MOUTH ONE TIME DAILY*05/23/2023ompletedNot AvailableNot AvailableNot AvailableTrue Metrix Glucose Test StripUSE TO TEST BLOOD GLUCOSE LEVELS TWICE DAILY; FASTING GLUCOSE AND AFTER ALTERNATING MEALS.*activeNot AvailableNot AvailableNot Available Paxlovid 150 mg-100 mg tablets in a dose pack (Moderate Renal Dose)Take 1 nirmatrelvir 150 mg pink-oval tablets and 1 ritonavir 100 mg white-oval tablet together twice daily for 5 days.*05/23/2023ompletedNot AvailableNot Available Not Available Vitals Date Recorded Body weight Body mass index (BMI) Body height Provider Name and Address Organization Details Last Updated DateTime 05/23/2023 34503.92 g 27.1 kg/m2 180.34 cm Kyle Heredia MD [address] [place] [address], [facility] 05/23/2023 11:20:42 Date Recorded Body height Body mass index (BMI) Body weight Provider Name and Address Organization Details Last Updated DateTime 06/18/2024 180.34 cm 27.1 kg/m2 73608.92 g Kyle Heredia MD [address] [place] [address],[place] [address], [facility] 06/18/2024 11:17:50 Date Recorded Body height Body mass index (BMI) Body weight Provider Name and Address Organization Details Last Updated DateTime 01/14/2025 180.34 cm 27.1 kg/m2 23961.92 g Kyle Heredia MD [address] [place] [address], [facility] 01/14/2025 10:43:41 Date Recorded Body height Body mass index (BMI) Body weight Provider Name and Address Organization Details Last Updated DateTime 02/25/2025 180.34 cm 27.1 kg/m2 25489.92 g Kyle Heredia MD [address] [place] [address], [facility] 02/25/2025 16:36:50 Social History Question Answer Notes LastModified by Organization D etails LastModified Time Tobacco Smoking Status Former Smoker Kyle Heredia MD [address] [place] [address], [address] [place] [address], [facility] Pusupdi1005/23/2023 11:23:28What Is Your Level Of Caffeine Consumption?Xfhysrddgjfwxzqx06Vegegvdyggh not nhynijxmi23/02/2024When Did You Quit Smoking?16+szpvoqqwyjjnsbytpdtzcxzvbxqjvny20Gkpttyzywbk not available 05/23/2023What Was The Date Of Your Most Recent Tobacco Screening?02/25/2025 baowmbjq64Ajlrzkqabmi not oxxpvwhii23/07/2025Has Tobacco Cessation Counseling Been Provided?Ktdzxhkboy64Ghaoucoirbp not ejgqpdbpf57/28/2025 Sex: Male Functional Status Question Answer Note LastModified by Organization D etails LastModified Time Do you use any illicit or recreational drugs? No htlomlih37Mapdgdynnbx not /28/2025Do you or have you ever used any other forms of tobacco or nicotine?Hxhfwbaxuy85Rzbrceqqbdr not available 06/18/2024What is your level of alcohol consumption?Hlkwhniqogmv14Mtzxljcuxtj not pkufdomrv39/02/2024 Mental Status None recorded. Family History Relationship Description Onset Age of this Age Resolved Age Notes LastModified by Organization Details LastModified Time Father Family history of Hypertension xdwbtrnp36Qhy tyauucrcy51/02/2024 11:22:40MotherFamily history of diabetes oczljmjbzngdqpfv54Uiz fiseljfrl27/02/2024 11:22:57 Medical History Condition Response Diabetes Y Sexually Transmitted Infection N Other N Bleeding Disorder N High Blood Pressure Y Kidney Stones N Cancer N Lung Disease N Depression N High Cholesterol N GERD/Acid Reflux N Heart Disease N Immunizations Vaccine Type Date Status Note Provider Nam e and Address Organization Details Recorded Time Influenza, split virus, quadrivalent, preservative completed Kyle Heredia MD [address] [place] [address], [address], [facility] Cvomkul8906/18/2024 11:17:56Influenza, high-dose, quadrivalent, PF 2completeSohan Heredia MD [address] [place] [address], [address], [facility] Hiohxkp5206/18/2024 11:17:56Influenza, high-dose, quadrivalent, PF 1completeSohan Heredia MD [address] [place] [address],[address], [address], [facility] Ekckbib7706/18/2024 11:17:56meningococcal OJON932completed Kyle Heredia MD [address] [place] [address],[address], [address], [facility] Zsgnkgk2806/18/2024 11:17:56COVID-19, mRNA, LNP-S, PF, 30 mcg/0.3 mL dose1completeSohan Heredia MD [address] [place], [place] [address], [place], [address], [facility] Pojuois7806/18/2024 11:17:56COVID-19, mRNA, LNP-S, PF, 30 mcg/0.3 mL dose1completeSohan Heredia MD [address] [place] [address],[address], [place], [address], [facility] Flepzdo7206/18/2024 11:17:56COVID-19, mRNA, LNP-S, PF, 30 mcg/0.3 mL dose1completeSohan Heredia MD [address] [place] [address],[address], [place], [address], [facility] Rcabpqx2306/18/2024 11:17:56pneumococcal polysaccharide PPV23 06/28/2011comIrvin Heredia MD [address] [place] [address],[address] [place] [address], [address], [facility] Mqonsdn2006/18/2024 11:17:56pneumococcal polysaccharide PPV23 09/06/2005completMeghan Heredia MD [address] [place] [address],[address] [facility], [place], [address], [facility] Sgijffg9006/18/2024 11:17:56pneumococcal polysaccharide PPV23 03/07/2000comIrvin Heredia MD [address] [place] [address],[address], [address], [facility] Uuzdfhn9606/18/2024 11:17:90Peny2106/28/2011comIrvin Heredia MD [address] [place] [address],[address] [place] [address], [address], [facility] Zpppatn1606/18/2024 11:17:56Pneumococcal conjugate PCV 13006/02/2016 Levi Heredia MD [address] [place] [address],[address] [place] [address], [address], [facility] Wodbeox9806/18/2024 11:17:56zoster live01/20/2011comIrvin Heredia MD [address] [place] [address],[address] [place] [address], [address], [facility] Unrlmvq1006/18/2024 11:17:56Influenza, high-dose, trivalent, PF 06/02/2016comIrvin Heredia MD [address] [place] [address],[address] [place] [address], [address], [facility] Rnvdghf7006/18/2024 11:17:56Influenza, high-dose, trivalent, PF 01/26/2017comIrvin Heredia MD [address] [place] [address],[address] [place] [address], [address], [facility] Anhuhwv4806/18/2024 11:17:56Influenza, high-dose, trivalent, PF 02/14/2018comIrvin Heredia MD [address] [place] [address],[address], [address], [facility] Xteyglc0806/18/2024 11:17:56Influenza, high-dose, trivalent, PF 02/27/2014comIrvin Heredia MD [address] [place] [address],[address], [address], [facility] Tyuzhdb5206/18/2024 11:17:56Influenza, high-dose, trivalent, PF 03/14/2012comIrvin Heredia MD [address] [place] [address],[address], [address], [facility] Fgtqglc6406/18/2024 11:17:56Influenza, split virus, trivalent, sxtmjakvfrym97/17/2002comIrvin Heredia MD [address] [place] [address],[address] [place] [address], [address], [facility] Uvvaapc0006/18/2024 11:17:56Influenza, split virus, trivalent, kovgjzpbkljf63/19/2005comIrvin Heredia MD [address] [place] [address],[address] [place] [address], [address], [facility] Pqduugi5206/18/2024 11:17:56Influenza, split virus, trivalent, xpiotwczwhuc63/10/2006comIrvin Heredia MD [address] [facility],[address], [place], [address], [place] [facility] Yeemqvl6306/18/2024 11:17:56Influenza, split virus, trivalent, PF 04/04/2008comIrvin Heredia MD [address] [facility],[address], [place], [address], [facility] Cgwwrxi8806/18/2024 11:17:56Influenza, split virus, trivalent, PF 04/27/2010comIrvin Heredia MD [address] [facility],[address], [place], [address], [facility] Hcydzdm4706/18/2024 11:17:56Hib (HbOC)09/06/2005comIrvin Heredia MD [address] [facility],[address], [place], [address], [facility] Serwaut2906/18/2024 11:17:56Td (adult), 2 Lf tetanus toxoid, preservative free, dxqegmtl34/02/2024completedNot AvailableAthSent[facility] 02/25/2025 16:19:03 Past Encounters Encounter ID Performer Location Encounter Start Date Encounter Closed Date Diagnosis/Indication Diagnosis SNOMED-CT Code Diagnosis ICD10 Code Diagnosis IMO Codes Diagnosis Note [id number] Kyle Heredia MD _[address] [address] 05/23/2023 11:02:29 05/29/2023 11:06:58 Increased frequency of urination 948263574 R35.0 History of malignant neoplasm of qifzeilh273655948V74.46 [id number] Bee_[address] [address] 06/18/2024 11:08:11006/20/2024 10:53:37History of malignant neoplasm of prostate 412103373P39.46 2004, got [id number] Bee[address] [address] 01/14/2025 10:30:3108 09:55:53Incomplete emptying of urinary bladder 495991095H39.9 89468 Overflow incontinence of gbmip867961991L75.490 22052 [id number] Heredia MDG[facility] [address] [facility] [facility] [address] [place] [address] 02/25/2025 16:18:181 10:44:42Incomplete emptying of urinary bladder 165318881J44.9 61450 Health Concerns Section Related Observation LastModified by Organization Detai ls LastModified Time None Recorded Concern Status LastModified by Organization Details LastModified Time None Recorded Advance Directives Directive None Recorded Payers Insurance Date Sequence Insurance Name Policy Number Policy Harden Covered Member ID Harden Member ID Guarantor Name 05/29/2023 2 [place] Inocente [id number] R [id number] [place] [employer] Danielle [id number] R [id number][id number] R [id number] R Buysman Notes Date Note Type Note Provider Name and Address Orga nization Details Recorded Time 05/23/2023 text/html new patient recently moved from [facility] 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 PSA generally about 1 and last was done a year ago with Urology there. UA bland and PVR 58ml today. denies heme/dysuria. takes plavix.Kyle Heredia MD [address] [facility],[address], [place], [address], [facility] Qdkhweh8805/23/2023 11:42:text/html follow up CaP, dx 2004 got XRT and then TURP in 2018, PSA 1.87 two weeks ago. voiding OK, occasional small leaks. UA bland and PVR 292ml today (58ml last year). on no bladder or prostate meds.Kyle Heredia MD [address] [facility],[address], [place], [address], [facility] Xxytycc1706/18/2024 11:30:0701/14/2025text/html seeing for follow up KEENA lately having nocturnal leaking. PVR t0day up to 580ml today, UA bland tr RBC.Kyle Heredia MD [address] [facility],[address], [place], [address], [facility] Wnakihd4801/14/2025 10:57:text/html follow up KEENA. PVR 149ml today, down from 580ml last visit . taking alfuzosin without problems. UA tr RBC. no leaking at night now.Kyle Heredia MD [address] [facility],[address], [place], [address], [facility] Slazysn97/07/2025 16:44:59
== END 2025-04-29 10:28 | disposition home or self-care (01) ==
LOC: NPINS 10:27
PROVIDERS: PCP Nurse Practitioner Gerontology; Visit Provider Nurse Practitioner Adult Health
DX: R53.1 Weakness (principal); I10 Essential (primary) hypertension; E11.42 Type 2 diabetes mellitus with diabetic polyneuropathy
CPT/HCPCS: 80048; 83036; 83735; 85025

== ENCOUNTER 2025-05-13 09:57 | Outpatient (REF) | payer MEDICARE, BC, SELFPAY ==
--- OUTSIDE RECORDS SUMMARY | 2021-03-15 15:54 | XMS_ITS | Continuity of Care Document ---
Author Organization [facility] Address [address] [place] [address] Phone Care Team Providers Care Back Wedger Name Role Phone Erasmo GARZA, Naveen Unavailable Unavailable Allergies, Adverse Reactions, Alerts Substance Reaction Status Criticality Sulfa (Sulfonamide Antibiotics) Active No Information mold Active No Information Medications Medication Instructions Dosage Dose Quantity Effective Dates (start - stop) Status Indication Fill Status Comments dicloxacilli n 500 mg capsule take 1 capsule by oral route every 6 hours 1 hour before a meal or 2 hours after a meal 10 MG 1 tablet - Active Basaglar KwikPen U-100 Insulin 100 unit/mL (3 mL) subcutaneous inject by subcutaneous route as per insulin protocol 10 MG 1 tablet - Active glucosamine HCl 500 mg tablet 10 MG 1 tablet - Active diclofenac 1 % topical gel apply 2 gram by topical route 4 times every day to the affected area(s) 10 MG 1 tablet - Active Vitamin B-12 1,000 mcg tablet take 1 tablet by oral route every day 1 tablet - Active tolterodine 1 mg tablet take 1 tablet by oral route 2 times every day 10 MG 1 tablet - Active Co Q-10 200 mg capsule 10 MG 1 tablet - Active clopidogrel 75 mg tablet take 1 tablet by oral route every day 10 MG 1 tablet - Active amlodipine 10 mg tablet take 1 tablet by oral route every day 10 MG 1 tablet - Active chromium picolinate 400 mcg tablet 10 MG 1 tablet - Active doxycycline hyclate 150 mg tablet take 1 tablet by oral route 2 times every day 10 MG 1 tablet - Active Advance Directives Directive Yes / No Effective Date File Name No Information Encounters Encounter Description Practice Location Reason(s) For Visit Diagnoses Date Provider Encounter Disposition [facility], [address], [place], [id number], [place] tel:[phone] [facility] No Information 1 Erasmo Hodge. [address] , [place], [place], [id number] , [place]. tel:[phone] [facility], [address] , [place], [place], [id number], [place] tel:[phone] [facility] No Information 0 Erasmo Hodge. [address] , [place], [place], [id number] , [place]. tel:[phone] Family History Family Member Type Diagnosis Age At Onset Problem Family history of heart dise ase Problem Family history of Diabetes m ellitus Problem Family history of Bladder ne oplasm Payers Payer name Insurance type Identifiers Authorization(s) Com ments No Information Social History Type Description Quantity Date Captured Comments Sex Male Smoking Status No Information Current Gender Male (finding) Chief Complaint And Reason For Visit No Information History Of Present Illness Encounter Date Complaint History Of Prese nt Illness No Information Functional Status Date Description Comments No Information Instructions Date Instruction Additional Infor mation No Information Assessments Type Assessment Date No Information
--- OUTSIDE RECORDS SUMMARY | 2025-05-14 00:17 | XMS_ITS | Data Portability ---
Author Organization [facility] Jhoanalo gy, [facility] Address [address] [place] [address] Care Team Providers Care Researcher Name Role Phone RHONDA VAUGHAN Primary Care Provider Assessment No assessment recorded. Plan of Treatment Reminders Order DateSubmit DateProviderLast Modified ByOrganization DetailsLast Modified TimeDetailsAppointmentsNone recorded.Laburinalysis, foawdecy23 [facility], [facility]5 [facility], [address] [facility], [place], [address], 10 16:38:50urinalysis, onzvzdrw92/26/2025 01/14/2025[facility], [address] [place] [address], [address], [place], [address], 78 13:26:33urinalysis, dipstick tfle[address], [facility]5 [facility], [address], [place], [address], 07 11:27:38urinalysis, iggvbeim04[facility]29[facility], [address] [place] [address], [address] [place], [address], 94 11:26:23 ReferralNone recorded.Proceduresbladder scan (PROC)doreilley _[facility], [address], [address], [place], [address], 70 16:38:50bladder scan (PROC)/ arvwvtdm83Qf_tyibivuh[address], [address], [address], [place], [address], 95 10:55:23bladder scan (PROC)06/14/2024 06/18/2024tf[address], [facility], [address], [place], [address], 26 11:27:38bladder scan (PROC)tf[address], [facility]5 [facility], [address], [place], [address], 90 11:26:22 SurgeriesNone recorded.ImagingNone recorded.Medication Ordersalfuzosin ER 10 mg tablet,extended release [id number] [address], [address], 02/25/2025 16:44:22 alfuzosin ER 10 mg tablet,extended release 24 [id number], [address], [address], 01/14/2025 10:55:25 Patient TargetsNo targets recorded. Patient Instructions Encounter Date Encounter Id Patient Instructions Last Modified By Organization Details Last Modified Time 05/23/2023 [id number] will get a PSA done today. call with report and if OK follow up 1 year with PSA. lawbvisr72 Not available 05/23/2023 11:41:49 06/18/2024 [id number] doing well stable/slight rise in PSA. will plan rtc 1 year with PSA for UA and PVR check. [email or web address] Not available 06/18/2024 11:27:37 01/14/2025 [id number] alfuzosin trial, recheck 1month for UA/PVR aqovvokz72 Not available 01/14/2025 10:53:58 02/25/2025 [id number] doing better wit h alfuzosin. will continue on this, rx converted to 90 days. rtc 6 months for UA/PVR recheck zdgpaqll55 Not available 02/25/2025 16:42:39 Reason for Referral None Reported. Results Created Date Observation Date Name Description Value Unit Range Abnormal Flag Note LastModifiedBy Organization Detail LastModifiedTime 05/23/2023 05/23/2023 bladder scan (PROC) Volume (in mL) 58m l Not AvailableUa[address] [place], [place], [address], 05/23/2023 11:26:urinalysis, dipstickGlucose-Vuadab068Pah Available[address] [place], [address], 05/23/2023 11:25:urinalysis, dipstickpH-Status6.0Not Available[address] [place], [address], 05/23/2023 11:25:urinalysis, dipstickBlood-StatusTraceNot Available[address] [place], [address], 05/23/2023 11:25:urinalysis, dipstickColor-StatusYellowNot Available[address], [place], [address], 06/14/2024 13:03:urinalysis, dipstickClarity-StatusClear Not Available[address], [place], [address], 06/14/2024 13:03:urinalysis, dipstickGlucose-Eevwzp837Ldj Available[address], [place], [address], 06/14/2024 13:03:urinalysis, dipstickSp Superior-Status 1.015Not Available[address], [place], [address], 06/14/2024 13:03:/urinalysis, dipstickpH-Status6.5Not Available[address], [place], [address], 06/14/2024 13:03:urinalysis, dipstickNitrates-Status negativeNot Available[address], [place], [address], 06/14/2024 13:03:38006/18//urinalysis, dipstickBlood-StatusTraceNot Available[address], [place], [address], 06/14/2024 13:03:38006/18/urinalysis, dipstickLeuko-StatusNegative Not Available[address], [place], [address], 06/14/2024 13:03:/urinalysis, dipstickSpecimen TypeVoided Not Available[address] [place], [place], [address], 06/14/2024 13:03:/ladder scan (PROC)Volume (in mL)292Not Available[address] [place], [place], [address], 06/14/2024 13:03:3508//urinalysis, dipstickColor-StatusYellowNot Available[address] [place], [place], [address], 01/14/2025 10:52:5408/urinalysis, dipstickClarity-StatusClear Not Available[address] [place], [place], [address], 01/14/2025 10:52:5408/urinalysis, dipstickSp Superior-Status 1.015Not Available[address], [place], [address], 01/14/2025 10:52:5408/urinalysis, dipstickGlucose-Kzhaab236Cfx Available[address], [place], [address], 01/14/2025 10:52:urinalysis, dipstickpH-Status7.0Not Available[address], [place], [address], 01/14/2025 10:52:urinalysis, dipstickSpecimen TypeVoided Not Available[address], [place], [address], 01/14/2025 10:52:urinalysis, dipstickLeuko-StatusNegative Not Available[address], [place], [address], 01/14/2025 10:52:urinalysis, dipstickBlood-StatusTraceNot Available[address], [place], [address], 01/14/2025 10:52:urinalysis, dipstickNitrates-Status negativeNot Available[address], [place], [address], 01/14/2025 10:52:5408urinalysis, dipstickPerformed WHITNEY Francois Not Available[address], [place], [address], 01/14/2025 10:52:5408ladder scan (PROC)Volume (in mL)580Not Available[address], [place], [address], 01/07/2025 09:40:urinalysis, dipstickColor-StatusYellowNot Available[address], [place], [address], 02/10/2025 14:27:urinalysis, dipstickClarity-StatusClear Not Available[address], [place], [address], 02/10/2025 14:27:urinalysis, dipstickGlucose-Isgvht387Bny Available[address], [place], [address], 02/10/2025 14:27:urinalysis, dipstickSp Superior-Status 1.020Not Available[address], [place], [address], 02/10/2025 14:27:2025urinalysis, dipstickpH-Status5.5Not Available[address], [place], [address], 02/10/2025 14:27:urinalysis, dipstickNitrates-Status negativeNot Available[address] [place], [place], [address], 02/10/2025 14:27:urinalysis, dipstickBlood-StatusTraceNot Available[address] [place], [place], [address], 02/10/2025 14:27:urinalysis, dipstickLeuko-StatusNegative Not Available[address] [place], [place], [address], 02/10/2025 14:27:urinalysis, dipstickSpecimen TypeVoided Not Available[address] [place], [place], [address], 02/10/2025 14:27:ladder scan (PROC)Volume (in mL)149Not Available[address] [place], [address], 02/10/2025 14:27:41 Result Notes None recorded. Problems Name Problem SNOMED Code Status Onset Date Resolution Date Notes Provider Name and Address Organization Details Recorded Time Incomplete emptying of urinary bladder 880097397 Active 01/14/2025 Kyle Heredia MD [address] [place] [address],[address] [place] [address], [address] [place] [address], [facility]01/14/2025 10:52:48Overflow incontinence of [id number] Yknpze1401/14/2025Kyle Heredia MD [address] [place] [address],[address], [place], [address] [place] [address], [facility] Bhipqgr0001/14/2025 10:57:12 Problem Notes None recorded. Procedures Surgical History Date Name Laterality Status Provider Name and Address Organization Details Recorded Time 02/25/2025 Bladder Scan completedKyle Heredia MD [address] [place] [address],[place] [address], [place], [place], [address] [place] [address], [facility] 16:36:3805Blakeviner ScanLevi Heredia MD [address] [place] [address],[address], [address] [place] [address], [facility]01/14/2025 10:44:13015Blakeviner Cassi Heredia MD [address] [place] [address],[address] [place] [address], [address] [place] [address], [facility]06/18/2024 11:19:0204Blakeviner Cassi Heredia MD [address] [place] [address],[address], [place], [address] [place] [address], [facility]05/23/2023 11:25:15tonsillectomycomIrvin Heredia MD [address] [place] [address],[address] [place] [address], [address] [place] [address], [facility]05/23/2023 11:23:48AppendectomycomIrvin Heredia MD [address] [place] [address],[address], [address] [place] [address], [facility]05/23/2023 11:23:53procedure on pancreascomIrvin Heredia MD [address] [place] [address],[address], [place], [address] [place] [address], [facility]05/23/2023 11:24:28Hip arthroscopy dxLevi Heredia MD [address] [place] [address],[address]05/23/2023 11:24:38total knee replacementcompletMeghan Heredia MD [address] [place] [address],[address]05/23/2023 11:24:45 Imaging Results None recorded. Procedure Notes None recorded. Medical Equipment None Reported. Allergies Allergen ID Allergen Name Allergen Category Reaction Reaction Severity Criticality Documentation Date Start Date Code Code System Note Provider Name and Address Organization Details Recorded Time 146544 Substance with sulfo namide structure and antibacterial mechanism of action (substance) medication hives Not available Not enxjnlife38/[id number] Fleming, MD [address] [place] [address],[address]06/18/2024 11:18:26240155aficrtoikarlfudp,medicationother Not available Not xlwdokeby62/[id number] wounds don't heal with latex bandagesTokevin Heredia MD [address] [place] [address],[place] [address], [facility]06/18/2024 11:18:05131638idpn extractenvironmentNot available Not available Not mocpptizb75/[id number] Fleming, MD [address] [place] [address],[address]01/14/2025 10:43:47 Medications Name Sig Start Date [...] Address Organization Details Last Updated DateTime 05/23/2023 95745.92 g 27.1 kg/m2 180.34 cm Kyle Heredia MD [address] [place] [address], [facility] 05/23/2023 11:20:42 Date Recorded Body height Body mass index (BMI) Body weight Provider Name and Address Organization Details Last Updated DateTime 06/18/2024 180.34 cm 27.1 kg/m2 18557.92 g Kyle Heredia MD [address] [place] [address],[place] [address], [employer] 06/18/2024 11:17:50 Date Recorded Body height Body mass index (BMI) Body weight Provider Name and Address Organization Details Last Updated DateTime 01/14/2025 180.34 cm 27.1 kg/m2 21412.92 g Kyle Heredia MD [address] [place] [address], [facility] 01/14/2025 10:43:41 Date Recorded Body height Body mass index (BMI) Body weight Provider Name and Address Organization Details Last Updated DateTime 02/25/2025 180.34 cm 27.1 kg/m2 56169.92 g Kyle Heredia MD [address] [place] [address], [facility] 02/25/2025 16:36:50 Social History Question Answer Notes LastModified by Organization D etails LastModified Time Tobacco Smoking Status Former Smoker Kyle Heredia MD [address] [place] [address], [address] [place] [address], [facility] Tavljjg4605/23/2023 11:23:28What Is Your Level Of Caffeine Consumption?Stfjqwqnghbpusnn71Encdzwhaltf not vfogwlpwt06/02/2024When Did You Quit Smoking?16+lcuktnslkmxwgdolvxvdlhltscpcvrf83Cmfmbezdvyf not available 05/23/2023What Was The Date Of Your Most Recent Tobacco Screening?02/25/2025 fjrlgrwt23Owvuucbnxwp not ffwdppudp21/07/2025Has Tobacco Cessation Counseling Been Provided?Pqihqvvfce57Golvqcndlje not uoiedyuks16/28/2025 Sex: Male Functional Status Question Answer Note LastModified by Organization D etails LastModified Time Do you use any illicit or recreational drugs? No nlcrwvjj82Ypiemppoioy not cotsfksxs45/28/2025Do you or have you ever used any other forms of tobacco or nicotine?Uwzkbgtkla11Gactqejnymj not available 06/18/2024What is your level of alcohol consumption?Gxaisrfiogvi71Vithsoqyogk not qpvvgweth52/02/2024 Mental Status None recorded. Family History Relationship Description Onset Age of this Age Resolved Age Notes LastModified by Organization Details LastModified Time Father Family history of Hypertension dokwimyg19Ujn bxhrioiwa82/02/2024 11:22:40MotherFamily history of diabetes qcwdrlarwfsavwyb04Qdb teixdlyva14/02/2024 11:22:57 Medical History Condition Response Sexually Transmitted Infection N Diabetes Y Other N Bleeding Disorder N High Blood Pressure Y Kidney Stones N High Cholesterol N GERD/Acid Reflux N Heart Disease N Cancer N Lung Disease N Depression N Immunizations Vaccine Type Date Status Note Provider Nam e and Address Organization Details Recorded Time Influenza, split virus, quadrivalent, preservative completed Kyle Heredia MD [address] [place] [address], [address], [facility] Gjwdweb6506/18/2024 11:17:56Influenza, high-dose, quadrivalent, PF 2completeSohan Heredia MD [address] [place] [address], [address], [facility] Rjtrrxl6906/18/2024 11:17:56Influenza, high-dose, quadrivalent, PF 1completeSohan Heredia MD [address] [place] [address],[address], [address], [facility] Cthyxcq6806/18/2024 11:17:56meningococcal FRAB249completed Kyle Heredia MD [address] [place] [address],[address], [address], [facility] Oicvokw9906/18/2024 11:17:56COVID-19, mRNA, LNP-S, PF, 30 mcg/0.3 mL dose1completeSohan Heredia MD [address] [place], [place] [address], [place], [address], [facility] Wydvnwp1506/18/2024 11:17:56COVID-19, mRNA, LNP-S, PF, 30 mcg/0.3 mL dose1completeSohan Heredia MD [address] [place] [address],[address], [place], [address], [facility] Nvmosqs9606/18/2024 11:17:56COVID-19, mRNA, LNP-S, PF, 30 mcg/0.3 mL dose1completeSohan Heredia MD [address] [place] [address],[address], [place], [address], [facility] Fgcrqhl1706/18/2024 11:17:56pneumococcal polysaccharide PPV23 06/28/2011comIrvin Heredia MD [address] [place] [address],[address] [place] [address], [address], [facility] Yirqsjd7106/18/2024 11:17:56pneumococcal polysaccharide PPV23 09/06/2005completMeghan Heredia MD [address] [place] [address],[address] [facility], [place], [address], [facility] Rvvuirj6506/18/2024 11:17:56pneumococcal polysaccharide PPV23 03/07/2000comIrvin Heredia MD [address] [place] [address],[address], [address], [facility] Nuvbedk8906/18/2024 11:17:98Eann1306/28/2011comIrvin Heredia MD [address] [place] [address],[address] [place] [address], [address], [facility] Antezyy2406/18/2024 11:17:56Pneumococcal conjugate PCV 13006/02/2016 Levi Heredia MD [address] [place] [address],[address] [place] [address], [address], [facility] Ijvdsbt0106/18/2024 11:17:56zoster live01/20/2011comIrvin Heredia MD [address] [place] [address],[address] [place] [address], [address], [facility] Kjzcoom7706/18/2024 11:17:56Influenza, high-dose, trivalent, PF 06/02/2016comIrvin Heredia MD [address] [place] [address],[address] [place] [address], [address], [facility] Fwjtpsa1606/18/2024 11:17:56Influenza, high-dose, trivalent, PF 01/26/2017comIrvin Heredia MD [address] [place] [address],[address] [place] [address], [address], [facility] Augnxpt1406/18/2024 11:17:56Influenza, high-dose, trivalent, PF 02/14/2018comIrvin Heredia MD [address] [place] [address],[address], [address], [facility] Szxknxm2606/18/2024 11:17:56Influenza, high-dose, trivalent, PF 02/27/2014comIrvin Heredia MD [address] [place] [address],[address], [address], [facility] Hckxxwp7506/18/2024 11:17:56Influenza, high-dose, trivalent, PF 03/14/2012comIrvin Heredia MD [address] [place] [address],[address], [address], [facility] Qzkosca8806/18/2024 11:17:56Influenza, split virus, trivalent, hfnatnlcqbrs91/17/2002comIrvin Heredia MD [address] [place] [address],[address] [place] [address], [address], [facility] Gohoexo2806/18/2024 11:17:56Influenza, split virus, trivalent, zwjtpyhghetl16/19/2005comIrvin Heredia MD [address] [place] [address],[address] [place] [address], [address], [facility] Okgiumy8106/18/2024 11:17:56Influenza, split virus, trivalent, /10/2006comIrvin Heredia MD [address] [facility],[address], [place], [address], [place] [facility] Sjkufaw7506/18/2024 11:17:56Influenza, split virus, trivalent, PF 04/04/2008comIrvin Heredia MD [address] [facility],[address], [place], [address], [facility] Pmroaew3506/18/2024 11:17:56Influenza, split virus, trivalent, PF 04/27/2010comIrvin Heredia MD [address] [facility],[address], [place], [address], [facility] Dpnpppe3406/18/2024 11:17:56Hib (HbOC)09/06/2005comIrvin Heredia MD [address] [facility],[address], [place], [address], [facility] Dpvoqpr6706/18/2024 11:17:56Td (adult), 2 Lf tetanus toxoid, preservative free, pcoqbhzf85/02/2024completedNot AvailableAthBon [facility] 02/25/2025 16:19:03 Past Encounters Encounter ID Performer Location Encounter Start Date Encounter Closed Date Diagnosis/Indication Diagnosis SNOMED-CT Code Diagnosis ICD10 Code Diagnosis IMO Codes Diagnosis Note [id number] Kyle Heredia MD _[address] [address] 05/23/2023 11:02:29 05/29/2023 11:06:58 Increased frequency of urination 975861388 R35.0 History of malignant neoplasm of zryqqqii631683550M47.46 [id number] Bee_[address] [address] 06/18/2024 11:08:11006/20/2024 10:53:37History of malignant neoplasm of prostate 555744951F30.46 2004, got [id number] [address] [address] 01/14/2025 10:30:3108 09:55:53Incomplete emptying of urinary bladder 380193045O22.9 59012 Overflow incontinence of lpqyh775866635T90.490 [address]26[address] [id number] Heredia [facility] [address] [place] [address] 02/25/2025 16:18:181 10:44:42Incomplete emptying of urinary bladder 903693293W24.9 92412 Health Concerns Section Related Observation LastModified by Organization Detai ls LastModified Time None Recorded Concern Status LastModified by Organization Details LastModified Time None Recorded Advance Directives Directive None Recorded Payers Insurance Date Sequence Insurance Name Policy Number Policy Harden Covered Member ID Harden Member ID Guarantor Name 05/29/2023 2 [place] Inocente [id number] R [id number] B[place] [employer] SERVICES Danielle [id number] R [id number][id number] R [id number] R [place] Notes Date Note Type Note Provider Name and Address Orga nization Details Recorded Time 05/23/2023 text/html new patient recently moved from [facility] 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 PSA generally about 1 and last was done a year ago with Urology there. UA bland and PVR 58ml today. denies heme/dysuria. takes plavix.Kyle Heredia MD [address] [facility],[address], [place], [address], [facility] Tosdjkq6705/23/2023 11:42:text/html follow up CaP, dx 2004 got XRT and then TURP in 2018, PSA 1.87 two weeks ago. voiding OK, occasional small leaks. UA bland and PVR 292ml today (58ml last year). on no bladder or prostate meds.Kyle Heredia MD [address] [facility],[address], [place], [address], [facility] Mjhyfsr4406/18/2024 11:30:0701/14/2025text/html seeing for follow up KEENA lately having nocturnal leaking. PVR t0day up to 580ml today, UA bland tr RBC.Kyle Heredia MD [address] [facility],[address], [place], [address], [facility] Usurpah0201/14/2025 10:57:text/html follow up KEENA. PVR 149ml today, down from 580ml last visit . taking alfuzosin without problems. UA tr RBC. no leaking at night now.Kyle Heredia MD [address] [facility],[address], [place], [address], [facility] Bmpewwb66/07/2025 16:44:59
--- OUTSIDE RECORDS SUMMARY | 2025-05-14 00:18 | XMS_ITS | Clinical Summary ---
Author Organization shipbeat [facility] Address [address] [place] [id number] Care Team Providers Care Cable Splicing Technician Name Role Phone No Machado MD [...] (HC)SQUARED TOE POST OP SHOE, LARGE, REF: [phone]/ctive Encounters DateTypeDepartmentCare UeueJzvnfsbzkjw44/24/2025 9:30 AM CSTOffice Visit [address] [place] [address] Tevin Pérez MD CV General Cardiology New (NEW PT; REF FOR NEW ONSET AFIB)04/14/2025Travel 04/09/20259469Sudgpj75/10/2025Orders Only [facility] Scanner 1 scan: (1-Ord) INCOMING RECORDS-LABS, [facility], Orders Only [facility] Scanner 1 scan: (1-Ord) INCOMING RECORDS-EKG, [facility], Orders Only [facility] Scanner 1 scan: (1-Ord) INCOMING RECORDS-EVENT MONITOR, [facility], 03/31/2025 03/31/2025Orders Only [facility] Scanner 1 scan: (1-Ord) INCOMING RECORDS-LABS, [facility], Orders Only [facility] [address] [place] [address] Jesusita Cruz 1 scan: (1-Ord) ZIO105/24/2024 8:00 AM CSTAncillary Procedure [facility] [facility] [address] [place] [address] from Last 3 Months Social History Tobacco UseTypesPacks/DayYears UsedDateSmoking Tobacco: FormerCigarettesPipe Smokeless Tobacco: Never Tobacco Cessation:Counseling Given: Yes Alcohol UseStandard Drinks/WeekCommentsNot Currently0 (1 standard drink = 0.6 oz pure alcohol)Sex and Gender InformationValueDate RecordedSex Assigned at Not on fileLegal GkzXhzf1605/23/2023 10:45 AM CSTGender IdentityNot on fileSexual OrientationNot on file Last Filed Vital Signs Vital SignReadingTime TakenCommentsBlood Viiioooc917/7004/14/2025 9:43 AM TEXTILE ARTIST Ibeus006204/14/2025 9:43 AM BFVPfqjueihhed94.8 ??C (98.2 ??F)06/15/2023 10:23 AM CSTRespiratory Bfyc450606/08/2023 12:10 PM CSTOxygen Adorraowjn42%04/14/2025 9:43 AM CSTInhaled Oxygen Concentration--Aeuwzc93.9 kg (185 lb)04/14/2025 9:43 AM TEXTILE ARTIST Srnkbe335.3 cm (5' 11)04/14/2025 9:43 AM CSTBody Mass Index25.8106/14/2024 9:43 AM TEXTILE ARTIST Plan of Treatment Health MaintenanceDue DateLast DoneCommentsTetanus upgfvry1208/09/1949Depression screening for age 12+1Pneumococcal series for age [...] this topic Procedures Procedure NamePriorityDate/TimeAssociated DiagnosisCommentsSCAN CORRESP-EKG MSULNAN8403/31/2025 12:00 AM TEXTILE ARTIST SCAN CORRESP-LABORATORY OTXQVSH9803/31/2025 12:00 AM TEXTILE ARTIST SCAN CORRESP-LABORATORY GKDFSRD4203/31/2025 12:00 AM TEXTILE ARTIST SCAN CORRESP-USHDGZVMZJY23/10/2025 12:00 AM TEXTILE ARTIST ECHO TTE COMPLETE WO EEKHMEZQOxhdhan99/03/2025 8:54 AM TEXTILE ARTIST Irregular heart beat EXTENDED FINVVWCnytoaq89/20/2025 Atrial fibrillation, unspecified type (HC) from Last 3 Months Results * SCAN CORRESP-LABORATORY RESULTS (03/31/2025 12:00 AM TEXTILE ARTIST) Only the most recent of2 resultswithin the time period is included. Narrative Authorizing ProviderResult TypeResult StatusScannerOTHERFinal Result * SCAN CORRESP-EKG RESULTS (03/31/2025 12:00 AM TEXTILE ARTIST) Narrative Authorizing ProviderResult TypeResult StatusScannerOTHERFinal Result * SCAN CORRESP-DIAGNOSTICS (03/31/2025 12:00 AM TEXTILE ARTIST) Narrative Authorizing ProviderResult TypeResult StatusScannerOTHERFinal Result * ECHO TTE COMPLETE WO CONTRAST (03/24/2025 8:54 AM TEXTILE ARTIST)ComponentValueRef Range Test MethodAnalysis TimePerformed AtPathologist SignatureAORTIC VALVE MEAN PG 18mmHgEJECTION HVESQZUG57%PEAK TR VELOCITY2.1m/sLVEDD4.2cmEJECTION KMSJOVCK91 - 65%Anatomical RegionLateralityModalityUltrasoundSpecimen (Source)Anatomical Location / LateralityCollection Method / VolumeCollection TimeReceived Time 03/24/2025 8:21 AM TEXTILE ARTIST Narrative 03/24/2025 10:24 AM TEXTILE ARTIST ECHOCARDIOGRAM INOCENTE BOYLE ? Accession#: ?? [id number] : ?1940 84 years Study Date: ?? 03/24/2025 8:21:23 AM Gender: M ?BP: ? 106/60 mmHg Height: 188.00 cm ?BSA: ?2.10 m? Weight: 84.00 kg ? Tech: ? MJW ? Referring MD: CHAZ BREAUX Site: [facility] Reading Location: Mobile-OP Patient Location: [...] . This study was interpreted by an [facility] accredited facility. CC: [facility] ([facility]) [facility]. ??Final ?? Procedure Note Pineda Mcneill MD - 03/24/2025 ECHOCARDIOGRAM INOCENTE BOYLE : 1940 84 years Study Date: 03/24/2025 8:21:23 AM Gender: M BP: 106/60 mmHg Height: 188.00 cm BSA: 2.10 m? Weight: 84.00 kg Tech: SHAVONNE Referring MD: CHAZ BREAUX Site: [facility] Reading Location: Mobile-OP Patient Location: [...] . This study was interpreted by an [facility] accredited facility. CC: [facility] (med records) [facility]. Final Authorizing ProviderResult TypeResult StatusChaz PLASENCIA ORDFinal Result * EXTENDED HOLTER (03/10/2025) Narrative Authorizing ProviderResult TypeResult StatusAlice Yolie Blair MDCARDIAC SERVICES ORDFinal Result from Last 3 Months Insurance * Guarantor: Inocente Boyle TypeRelation to PatientDate of BirthPhone Billing AddressPersonal/XsajloIodm71/21/1941 [facility] [address] [place] [address] Advance Directives * Full Code (Latest Code Status on File) Date ActivatedDate InactivatedComments06/08/2023 10:56 AM06/08/2023 3:27 PM QuestionAnswerCommentsCode Status Discussion:* Unable to Assess Preferences, Provider to review later Care Teams Team MemberRelationshipSpecialtyStart DateEnd Date No Machado MD [facility] [address] [id number] [facility]
== END 2025-05-13 09:58 | disposition home or self-care (01) ==
LOC: NPINS 09:57
PROVIDERS: PCP Nurse Practitioner Gerontology; Visit Provider Nurse Practitioner Adult Health
DX: E11.42 Type 2 diabetes mellitus with diabetic polyneuropathy (principal)
CPT/HCPCS: 83036